=== PATIENT | male | born 1955 | race Caucasian/White ===

== ENCOUNTER → 2018-06-05 | Outpatient (CLI) | payer BC ==
--- NOTE | 2018-06-05 15:16 | US ---
EXAMINATION TYPE: US kidneys/renal and bladder DATE OF EXAM: 06/05/2018 COMPARISON: NONE CLINICAL HISTORY: N18.3 Chronic kidney disease stage 3. CKD stage III EXAM MEASUREMENTS: Right Kidney: 9.7 x 3.8 x 4.8 cm Left Kidney: 10.8 x 5.3 x 4.5 cm Right Kidney: cystic area upper pole = 3.9 x 3.7 x 3.2cm Left Kidney: no evidence of hydronephrosis Bladder: appears wnl as visualized Bilateral Jets seen: yes There is no evidence for hydronephrosis at this point in time. No nephrolithiasis is seen. Upper hazel e focus right kidney is anechoic and shows increased through transmission, imperceptible wall compati ble with simple cyst. Cortical medullary differentiation is maintained. The urinary bladder is anecho ic. Bilateral ureteral jets are seen. IMPRESSION: Simple cyst upper pole right kidney.
== END | disposition home or self-care (01) ==
LOC: RADUSWWP 12:09
PROVIDERS: ATTEND Urology
DX: N28.1 Cyst of kidney, acquired (principal); N18.3 Chronic kidney disease, stage 3 (moderate)
CPT/HCPCS: 76770

== ENCOUNTER → 2018-06-13 | Outpatient (CLI) | payer BC ==
[2018-06-13 18:06] LABS: Total Volume 24 Hour,Urine 3350 mL
== END | disposition home or self-care (01) ==
LOC: LABWHC1 09:08
PROVIDERS: ATTEND Urology
DX: N18.3 Chronic kidney disease, stage 3 (moderate) (principal)
CPT/HCPCS: 36415; 81050; 82575; 84156

== ENCOUNTER → 2018-07-15 | Outpatient (CLI) | payer BC ==
[2018-07-15 09:37] LABS: HCT 44.8 % (39.0-53.0); HGB 14.3 gm/dL (13.0-17.5); MCH 30.7 pg (25.0-35.0); MCHC 31.8 g/dL (31.0-37.0); MCV 96.3 fL (80.0-100.0); Mean Platelet Volume 7.1; Platelet Count 261 k/uL (150-450); RBC 4.65 m/uL (4.30-5.90); RDW 13.4 % (11.5-15.5); WBC 7.3 k/uL (3.8-10.6)
[2018-07-15 09:55] LABS: Appearance,Urine Clear (Clear); Bilirubin,Urine Negative (Negative); Blood,Urine Negative (Negative); Color,Urine Yellow; Glucose,Urine (UA) Negative (Negative); Ketones,Urine Negative (Negative); Leukocyte Esterase,Urine Negative (Negative); Nitrite,Urine Negative (Negative); PH, Urine 5.5 (5.0-8.0); Protein,Urine Negative (Negative); Specific Gravity,Urine 1.019 (1.001-1.035); Urobilinogen,Urine <2.0 mg/dL (<2.0)
[2018-07-15 17:24] LABS: Albumin 4.3 g/dL (3.80-4.90); Albumin/Globulin Ratio 1.65 (1.20-2.10); Anion Gap 3.9 mmol/L (4.00-12.00); Calcium 9.2 mg/dL (8.7-10.3); Carbon Dioxide 27.1 mmol/L (21.6-31.8); Globulin 2.6 g/dL (2.1-3.7); Phosphorus 3.8 mg/dL (2.4-5.1); Potassium 4.8 mmol/L (3.5-5.5); Total Bilirubin 0.4 mg/dL (0.3-1.2); Total Protein 6.9 g/dL (6.2-8.2)
== END ==
LOC: LABWHC1 08:28
PROVIDERS: ATTEND Internal Medicine
DX: D64.9 Anemia, unspecified (principal); E83.39 Other disorders of phosphorus metabolism; N39.0 Urinary tract infection, site not specified
CPT/HCPCS: 36415; 80053; 81003; 84100; 85027

== ENCOUNTER 2018-08-09 15:25 | Observation (INO) | payer BC ==
[2018-08-09] MEDS ORDERED: NITROGLYCERIN SL TABS 0.4 MG TAB SUBLINGUAL STA (15:48)
[2018-08-09] MEDS ORDERED: ASPIRIN 81 MG PO STA (15:48)
--- NOTE | 2018-08-09 15:50 | ED ---
General Adult HPI - General Chief complaint: Chest Pain Stated complaint: Chest pain Time Seen by Provider: 08/09/18 15:40 Source: patient, family, RN notes reviewed Mode of arrival: ambulatory Limitations: no limitations - History of Present Illness Initial comments: Patient is a pleasant 62-year-old male presenting to the emergency Department with complaints of chest discomfort. Symptoms have been occurring for approximately 10 days. Patient has tightness in his chest that is rated 4/10. Discomfort is lower sternal region. No radiation. No dyspnea. No nausea or diaphoresis. Symptoms are not positional. Symptoms do worsen somewhat with taking breaths, especially deep breaths. Symptoms are also somewhat worsened nighttime. Patient has been taking Pepcid without improvement of symptoms. No history of similar symptoms previously. - Related Data Home Medications Medication Instructions Recorded Confirmed Dorzolamide HCl/Timolol Maleat 1 drop BOTH EYES BID 01/25/16 08/09/18 [Cosopt Eye Drops] Latanoprost [Xalatan 0.005%] 1 drop BOTH EYES HS 01/25/16 08/09/18 Cyanocobalamin [Vitamin B-12] 500 mcg PO DAILY 02/18/18 08/09/18 Acetaminophen [Tylenol Arthritis] 650 mg PO DAILY 08/09/18 08/09/18 Allergies Allergy/AdvReac Type Severity Reaction Status Date / Time No Known Allergies Allergy Verified 08/09/18 16:31 Review of Systems ROS Statement: Those systems with pertinent positive or pertinent negative responses have been documented in the HPI. ROS Other: All systems not noted in ROS Statement are negative. Constitutional: Denies: fever Eyes: Denies: eye pain ENT: Denies: ear pain Respiratory: Denies: cough, dyspnea Cardiovascular: Reports: as per HPI, chest pain Endocrine: Denies: fatigue Gastrointestinal: Denies: abdominal pain, nausea, vomiting Genitourinary: Denies: dysuria Musculoskeletal: Denies: back pain Skin: Denies: rash Neurological: Denies: weakness Past Medical History Past Medical History: Eye Disorder, GERD/Reflux, Hyperlipidemia, Musculoskeletal Disorder, Osteoarthritis (OA), Vascular Disorder Additional Past Medical History / Comment(s): GLAUCOMA, , chronic back pain, detached retina zachery eyes,superficial thrombosis rt leg History of Any Multi-Drug Resistant Organisms: None Reported Past Surgical History: Adenoidectomy, Orthopedic Surgery, Tonsillectomy Additional Past Surgical History / Comment(s): Pain clinic proc to back:04-12-16, Zachery Cataract, lens implants, Rt knee x 2, Lt shoulder rotator cuff,zachery detached retina repair, Past Anesthesia/Blood Transfusion Reactions: No Reported Reaction Past Psychological History: No Psychological Hx Reported Smoking Status: Former smoker Past Alcohol Use History: Occasional Past Drug Use History: None Reported - Past Family History Mother Family Medical History: Cancer, Congestive Heart Failure (CHF), COPD Additional Family Medical History / Comment(s): bowel cancer Father Family Medical History: Congestive Heart Failure (CHF), COPD Additional Family Medical History / Comment(s): emphysema Sister(s) Family Medical History: No Reported History (Patient has one sister no major medical problems) Additional Family Medical History / Comment(s): glaucoma General Exam Limitations: no limitations General appearance: alert, in no apparent distress Head exam: Present: atraumatic Eye exam: Present: normal appearance, PERRL ENT exam: Present: normal oropharynx Neck exam: Present: normal inspection Respiratory exam: Present: normal lung sounds bilaterally. Absent: chest wall tenderness Cardiovascular Exam: Present: regular rate, normal rhythm, normal heart sounds Expanded Peripheral pulses: 2+: Radial (R), Radial (L), Posterior Tibialis (R), Posterior Tibialis (L), Dorsalis Pedis (R), Dorsalis Pedis (L) GI/Abdominal exam: Present: soft. Absent: distended, tenderness, guarding Extremities exam: Present: normal inspection. Absent: pedal edema, calf tenderness Neurological exam: Present: alert Psychiatric exam: Present: normal affect, normal mood Skin exam: Present: normal color Course Vital Signs 08/09/18 08/09/18 08/09/18 15:27 15:55 16:00 Temperature 97.8 F Pulse Rate 71 67 Respiratory 20 20 Rate Blood Pressure 165/89 134/84 O2 Sat by Pulse 99 97 98 Oximetry 08/09/18 08/09/18 16:30 17:30 Temperature Pulse Rate 65 56 L Respiratory 18 16 Rate Blood Pressure 112/73 119/75 O2 Sat by Pulse 96 99 Oximetry EKG Findings - EKG Comments: EKG Findings:: Normal sinus rhythm 64. OH 156. QRS 92. QT 390. QTC 402. Normal axis. Normal QRS. No acute ST change. Medical Decision Making - Medical Decision Making Patient reevaluated and resting comfortably in bed. Patient and family updated on results and plan. Case was crusted detail with Dr. Sierra, who will admit covering for Dr. addison - Lab Data Result diagrams: 08/09/18 16:00 08/09/18 16:00 Lab Results 08/09/18 08/09/18 08/09/18 Range/Units 16:00 16:00 16:00 WBC 9.1 (3.8-10.6) k/uL RBC 4.55 (4.30-5.90) m/uL Hgb 14.0 (13.0-17.5) gm/dL Hct 42.5 (39.0-53.0) % MCV 93.4 (80.0-100.0) fL MCH 30.7 (25.0-35.0) pg MCHC 32.9 (31.0-37.0) g/dL RDW 13.4 (11.5-15.5) % Plt Count 271 (150-450) k/uL Neutrophils % 64 % Lymphocytes % 23 % Monocytes % 8 % Eosinophils % 2 % Basophils % 1 % Neutrophils # 5.8 (1.3-7.7) k/uL Lymphocytes # 2.1 (1.0-4.8) k/uL Monocytes # 0.8 (0-1.0) k/uL Eosinophils # 0.2 (0-0.7) k/uL Basophils # 0.0 (0-0.2) k/uL PT (9.0-12.0) sec INR (<1.2) APTT (22.0-30.0) sec D-Dimer (<0.60) mg/L FEU Sodium 141 (137-145) mmol/L Potassium 4.7 (3.5-5.1) mmol/L Chloride 109 H (98-107) mmol/L Carbon Dioxide 24 (22-30) mmol/L Anion Gap 8 mmol/L BUN 26 H (9-20) mg/dL Creatinine 1.42 H (0.66-1.25) mg/dL Est GFR (CKD-EPI)AfAm 61 (>60 ml/min/1.73 sqM) Est GFR (CKD-EPI)NonAf 53 (>60 ml/min/1.73 sqM) Glucose 90 (74-99) mg/dL Calcium 9.5 (8.4-10.2) mg/dL Magnesium 2.1 (1.6-2.3) mg/dL Total Bilirubin 0.4 (0.2-1.3) mg/dL AST 34 (17-59) U/L ALT 26 (21-72) U/L Alkaline Phosphatase 55 (38-126) U/L Total Creatine Kinase 240 H (55-170) U/L CK-MB (CK-2) 2.9 H (0.0-2.4) ng/mL CK-MB (CK-2) Rel Index 1.2 Troponin I <0.012 (0.000-0.034) ng/mL Total Protein 7.9 (6.3-8.2) g/dL Albumin 3.8 (3.5-5.0) g/dL 08/09/18 Range/Units 16:00 WBC (3.8-10.6) k/uL RBC (4.30-5.90) m/uL Hgb (13.0-17.5) gm/dL Hct (39.0-53.0) % MCV (80.0-100.0) fL MCH (25.0-35.0) pg MCHC (31.0-37.0) g/dL RDW (11.5-15.5) % Plt Count (150-450) k/uL Neutrophils % % Lymphocytes % % Monocytes % % Eosinophils % % Basophils % % Neutrophils # (1.3-7.7) k/uL Lymphocytes # (1.0-4.8) k/uL Monocytes # (0-1.0) k/uL Eosinophils # (0-0.7) k/uL Basophils # (0-0.2) k/uL PT 10.0 (9.0-12.0) sec INR 0.9 (<1.2) APTT 24.2 (22.0-30.0) sec D-Dimer 0.39 (<0.60) mg/L FEU Sodium (137-145) mmol/L Potassium (3.5-5.1) mmol/L Chloride (98-107) mmol/L Carbon Dioxide (22-30) mmol/L Anion Gap mmol/L BUN (9-20) mg/dL Creatinine (0.66-1.25) mg/dL Est GFR (CKD-EPI)AfAm (>60 ml/min/1.73 sqM) Est GFR (CKD-EPI)NonAf (>60 ml/min/1.73 sqM) Glucose (74-99) mg/dL Calcium (8.4-10.2) mg/dL Magnesium (1.6-2.3) mg/dL Total Bilirubin (0.2-1.3) mg/dL AST (17-59) U/L ALT (21-72) U/L Alkaline Phosphatase (38-126) U/L Total Creatine Kinase (55-170) U/L CK-MB (CK-2) (0.0-2.4) ng/mL CK-MB (CK-2) Rel Index Troponin I (0.000-0.034) ng/mL Total Protein (6.3-8.2) g/dL Albumin (3.5-5.0) g/dL - Radiology Data Radiology results: image reviewed (Chest x-ray shows no acute process) Disposition Clinical Impression: Chest pain Disposition: ADMITTED IP TO THIS HOSP Is patient prescribed a controlled substance at d/c from ED?: No Referrals: Choco Addison DO [Primary Care Provider] - 1-2 days Time of Disposition: 18:27 Decision Time: 18:27
[2018-08-09 16:20] LABS: Basophils % (A) 1 %; Eosinophils # (A) 0.2 k/uL (0-0.7); Eosinophils % (A) 2 %; HCT 42.5 % (39.0-53.0); Lymphocytes # (A) 2.1 k/uL (1.0-4.8); Lymphocytes % (A) 23 %; MCH 30.7 pg (25.0-35.0); MCHC 32.9 g/dL (31.0-37.0); MCV 93.4 fL (80.0-100.0); Monocytes # (A) 0.8 k/uL (0-1.0); Monocytes % (A) 8 %; Neutrophils # (A) 5.8 k/uL (1.3-7.7); Neutrophils % (A) 64 %; Platelet Count 271 k/uL (150-450); RBC 4.55 m/uL (4.30-5.90); RDW 13.4 % (11.5-15.5); WBC 9.1 k/uL (3.8-10.6)
[2018-08-09 16:31] LABS: Albumin 3.8 g/dL (3.5-5.0); Calcium 9.5 mg/dL (8.4-10.2); Magnesium 2.1 mg/dL (1.6-2.3); Potassium 4.7 mmol/L (3.5-5.1); Total Bilirubin 0.4 mg/dL (0.2-1.3); Total Protein 7.9 g/dL (6.3-8.2)
[2018-08-09 16:38] LABS: D-Dimer 0.39 mg/L FEU (<0.60); INR 0.9 (<1.2); Partial Thromboplastin Time 24.2 sec (22.0-30.0)
[2018-08-09 16:41] LABS: Creatine Kinase 240 U/L (55-170)
[2018-08-09 16:54] LABS: Creatine Kinase MB 2.9 ng/mL (0.0-2.4); Troponin I <0.012 ng/mL (0.000-0.034)
--- NOTE | 2018-08-09 17:20 | XR ---
EXAMINATION TYPE: XR chest 2V DATE OF EXAM: 08/09/2018 COMPARISON: 01/25/2016 HISTORY: Chest pain TECHNIQUE: Frontal and lateral views of the chest are obtained. FINDINGS: Heart and mediastinum are normal. Lungs are clear of consolidation. There is no pleural ef fusion. Bony thorax is intact. There are chest leads. IMPRESSION: No active cardiopulmonary disease. Normal heart. No change.
[2018-08-09] MEDS ORDERED: NITROGLYCERIN SL TABS 0.4 MG TAB SUBLINGUAL PRN (18:28)
[2018-08-09] MEDS ORDERED: ARTIFICIAL TEARS-HYPROMELLOSE DROPS 15 ML BTL BOTH EYES PRN (20:51)
[2018-08-09] MEDS ORDERED: LATANOPROST 0.005% OPHTH DROPS 2.5 ML BTL BOTH EYES SCH (21:00)
[2018-08-09 22:00] LABS: Creatine Kinase 186 U/L (55-170)
[2018-08-09] MEDS: DORZOLAMIDE-TIMOLOL 2.23%/0.68 10ML BTL BOTH EYES SCH (22:05)
[2018-08-09 22:13] LABS: Creatine Kinase MB 1.9 ng/mL (0.0-2.4); Troponin I <0.012 ng/mL (0.000-0.034)
[2018-08-09] MEDS: NITROGLYCERIN OINT 1 INCH/GM PACKET TOPICAL SCH (23:32)
[2018-08-10 04:29] LABS: Cholesterol 251 mg/dL (<200); HDL Cholesterol 49 mg/dL (40-60); LDL Cholesterol,Calculated 136 mg/dL (0-99); Triglycerides 328 mg/dL (<150)
[2018-08-10 04:33] LABS: Creatine Kinase 167 U/L (55-170)
[2018-08-10 04:45] LABS: Creatine Kinase MB 1.7 ng/mL (0.0-2.4); Troponin I <0.012 ng/mL (0.000-0.034)
[2018-08-10] MEDS: NITROGLYCERIN OINT 1 INCH/GM PACKET TOPICAL SCH ×2 (06:46→12:17)
[2018-08-10] MEDS: DORZOLAMIDE-TIMOLOL 2.23%/0.68 10ML BTL BOTH EYES SCH (08:17)
[2018-08-10] MEDS ORDERED: ASPIRIN 325 MG TAB PO SCH (09:00)
[2018-08-10 11:44] VITALS: BP 129/71; PULSE 51; RESP 14; TEMP 98.3
--- NOTE | 2018-08-10 11:45 | P.CRDCN ---
History of Present Illness History of present illness: This is Dr. Hernandez dictating a consult on this patient The patient was interviewed and examined by me IMPRESSION / ASSESSMENT: 62 male patient presenting with recurrent tightness in the chest with 3 normal cardiac enzymes Elevated triglycerides of 328 Elevated total. 251 Elevated LDL of 136 HDL 49 BUN 26 creatinine 1.4 to, chronic kidney disease stage III PLAN: Patient may go home from a cardiac standpoint and I will see him for outpatient workup. He stopped smoking many years back Dietary modification low-salt diet regular exercise HPI 62-year-old male patient with chest discomfort for 10 days. Recurrent tightness , 4-10 lower mid chest without any radiation no shortness of breath no nausea diaphoresis Somewhat pleuritic in nature History of dyslipidemia Twelve-lead ECG is normal ROS: No fever chills or rigors, no cough, phlegm or expectoration, no nausea, vomiting or diarrhea, no hematuria, dysuria, no musculoskeletal complaints, no strokes or seizures, no skin lesions. EXAMINATION Normal heart sounds, normal blood pressure Breath sounds are clear no rhonchi no crackles Extremity is warm no edema Abdomen soft nontender Normal heart sounds normal S1 normal S2 no murmurs or gallop or rub REVIEW OF LABS, ECG Twelve-lead ECG is completely normal Radiology read the chest x-ray is within normal limits Past Medical History Past Medical History: Eye Disorder, GERD/Reflux, Hyperlipidemia, Musculoskeletal Disorder, Osteoarthritis (OA), Vascular Disorder Additional Past Medical History / Comment(s): GLAUCOMA, chronic back pain, detached retina zahcery eyes,superficial thrombosis rt leg History of Any Multi-Drug Resistant Organisms: None Reported Past Surgical History: Adenoidectomy, Orthopedic Surgery, Tonsillectomy Additional Past Surgical History / Comment(s): Pain clinic proc to back:04-12-16, Zachery Cataract, lens implants, Rt knee x 2( first sx on rt meniscus repair and 2nd sx rt acl reconstruction),rt thumg cyst removed Lt shoulder rotator cuff, zachery detached retina repair, 02-18-18 sx for displaced intraocular lens rt eye. Past Anesthesia/Blood Transfusion Reactions: No Reported Reaction Smoking Status: Former smoker - Past Family History Mother Family Medical History: Cancer, Congestive Heart Failure (CHF), COPD Additional Family Medical History / Comment(s): bowel cancer Father Family Medical History: Congestive Heart Failure (CHF), COPD Additional Family Medical History / Comment(s): emphysema Sister(s) Family Medical History: No Reported History Additional Family Medical History / Comment(s): glaucoma Medications and Allergies Home Medications Medication Instructions Recorded Confirmed Type Dorzolamide HCl/Timolol Maleat 1 drop BOTH EYES BID 01/25/16 08/09/18 History [Cosopt Eye Drops] Latanoprost [Xalatan 0.005%] 1 drop BOTH EYES HS 01/25/16 08/09/18 History Cyanocobalamin [Vitamin B-12] 500 mcg PO DAILY 02/18/18 08/09/18 History Acetaminophen [Tylenol Arthritis] 650 mg PO DAILY 08/09/18 08/09/18 History Artificial Tears-Hypromellose 1 drops BOTH EYES TID PRN 08/09/18 08/09/18 History [Artificial Tear Drops] Allergies Allergy/AdvReac Type Severity Reaction Status Date / Time No Known Allergies Allergy Verified 08/09/18 20:23 Physical Exam Vitals: Vital Signs Temp Pulse Pulse Resp BP BP Pulse Ox 08/10/18 03:49 16 08/10/18 03:48 98.4 F 63 16 118/68 96 08/10/18 00:40 98.6 F 59 L 16 129/79 97 08/09/18 23:24 18 08/09/18 20:00 18 08/09/18 19:31 98.1 F 68 18 160/91 99 08/09/18 19:00 57 L 15 137/91 99 08/09/18 18:30 58 L 14 118/83 99 08/09/18 18:00 58 L 16 115/74 99 08/09/18 17:30 56 L 16 119/75 99 08/09/18 16:30 65 18 112/73 96 08/09/18 16:00 67 20 134/84 98 08/09/18 15:55 97 08/09/18 15:27 97.8 F 71 20 165/89 99 Intake and Output 08/09/18 08/10/18 08/10/18 22:59 06:59 14:59 Other: Voiding Method Toilet Toilet # Voids 2 Weight 98.5 kg Results 08/09/18 16:00 08/09/18 16:00 Cardiac Enzymes 08/09/18 08/09/18 08/09/18 Range/Units 16:00 16:00 21:33 AST 34 (17-59) U/L CK-MB (CK-2) 2.9 H 1.9 (0.0-2.4) ng/mL Troponin I <0.012 <0.012 (0.000-0.034) ng/mL 08/10/18 Range/Units 03:18 AST (17-59) U/L CK-MB (CK-2) 1.7 (0.0-2.4) ng/mL Troponin I <0.012 (0.000-0.034) ng/mL Coagulation 08/09/18 Range/Units 16:00 PT 10.0 (9.0-12.0) sec APTT 24.2 (22.0-30.0) sec Lipids 08/10/18 Range/Units 03:18 Triglycerides 328 H (<150) mg/dL Cholesterol 251 H (<200) mg/dL HDL Cholesterol 49 (40-60) mg/dL CBC 08/09/18 Range/Units 16:00 WBC 9.1 (3.8-10.6) k/uL RBC 4.55 (4.30-5.90) m/uL Hgb 14.0 (13.0-17.5) gm/dL Hct 42.5 (39.0-53.0) % Plt Count 271 (150-450) k/uL Comprehensive Metabolic Panel 08/09/18 Range/Units 16:00 Sodium 141 (137-145) mmol/L Potassium 4.7 (3.5-5.1) mmol/L Chloride 109 H (98-107) mmol/L Carbon Dioxide 24 (22-30) mmol/L BUN 26 H (9-20) mg/dL Creatinine 1.42 H (0.66-1.25) mg/dL Glucose 90 (74-99) mg/dL Calcium 9.5 (8.4-10.2) mg/dL AST 34 (17-59) U/L ALT 26 (21-72) U/L Alkaline Phosphatase 55 (38-126) U/L Total Protein 7.9 (6.3-8.2) g/dL Albumin 3.8 (3.5-5.0) g/dL Current Medications Generic Name Dose Route Start Last Admin Trade Name Freq PRN Reason Stop Dose Admin Artificial Tears 1 drops 08/09/18 20:51 Artificial Tear Drops BOTH EYES TID PRN dry eye Aspirin 325 mg 08/10/18 09:00 Aspirin PO DAILY [facility] Dorzolamide/Timolol 1 drops 08/09/18 21:00 08/09/18 22:05 Cosopt BOTH EYES Not Given BID LALITA Latanoprost 1 drops 08/09/18 21:00 08/09/18 21:44 Xalatan 0.005% BOTH EYES 1 drops HS LALITA Administration Nitroglycerin 1 inch 08/10/18 00:00 08/10/18 06:46 Nitro-Bid Oint TOPICAL Not Given Q6HR [facility] Nitroglycerin 0.4 mg 08/09/18 18:28 Nitrostat SUBLINGUAL Q5M PRN Chest Pain Intake and Output 08/09/18 08/10/18 08/10/18 22:59 06:59 14:59 Other: Voiding Method Toilet Toilet # Voids 2 Weight 98.5 kg 08/09/18 16:00 08/09/18 16:00
--- NOTE | 2018-08-10 13:55 | P.HPIM ---
History of Present Illness H&P Date: 08/10/18 Chief Complaint: Chest pain This is a 62-year-old pleasant male who presented to the emergency department with complaints of chest discomfort. The abdominal have been occurring for approximately 10 days. The patient had chest tightness that was rate of 4 out of 10. The discomfort was in the lower sternal region with no radiation denies any difficulty breathing nausea or diaphoresis. The symptoms do worsen with taking deep breaths. The symptoms seem to be worse at night. Patient does take Pepcid however the symptoms are not resolved after he took Pepcid. Patient has history of acid reflux, hyperlipidemia, osteoarthritis, glaucoma, chronic back pain, and superficial thrombosis of the right leg. Patient is sitting comfortably in bed at this time. He has been up and around his room without any complaints. Patient has been seen by cardiology and was cleared to go home. Patient denies any chest pain at this time, difficulty breathing, diaphoresis, nausea or vomiting. Review of Systems Constitutional: Denies chills, Denies fatigue, Denies lethargy, Denies malaise, Denies weight gain, Denies weight loss Eyes: denies blurred vision, denies discharge Ears: deny: decreased hearing, ear discharge Ears, nose, mouth and throat: Denies dysphagia, Denies headache, Denies sore throat Cardiovascular: Denies chest pain, Denies dyspnea on exertion, Denies irregular heart beat, Denies palpitations, Denies rapid heart beat Respiratory: Denies cough, Denies dyspnea, Denies snoring Gastrointestinal: Denies abdominal pain, Denies change in bowel habits, Denies constipation, Denies heartburn, Denies nausea, Denies vomiting Musculoskeletal: Denies atrophy, Denies limitation of motion Integumentary: Denies rash, Denies wounds Neurological: Denies aphasia, Denies numbness, Denies tingling Psychiatric: Denies anxiety, Denies depression Endocrine: Denies excessive thirst, Denies polyuria Hematologic/Lymphatic: Denies easy bleeding, Denies easy bruising Past Medical History Past Medical History: Eye Disorder, GERD/Reflux, Hyperlipidemia, Musculoskeletal Disorder, Osteoarthritis (OA), Vascular Disorder Additional Past Medical History / Comment(s): GLAUCOMA, chronic back pain, detached retina zachery eyes,superficial thrombosis rt leg History of Any Multi-Drug Resistant Organisms: None Reported Past Surgical History: Adenoidectomy, Orthopedic Surgery, Tonsillectomy Additional Past Surgical History / Comment(s): Pain clinic proc to back:04-12-16, Zachery Cataract, lens implants, Rt knee x 2( first sx on rt meniscus repair and 2nd sx rt acl reconstruction),rt thumg cyst removed Lt shoulder rotator cuff, zachery detached retina repair, 02-18-18 sx for displaced intraocular lens rt eye. Past Anesthesia/Blood Transfusion Reactions: No Reported Reaction Smoking Status: Former smoker - Past Family History Mother Family Medical History: Cancer, Congestive Heart Failure (CHF), COPD Additional Family Medical History / Comment(s): bowel cancer Father Family Medical History: Congestive Heart Failure (CHF), COPD Additional Family Medical History / Comment(s): emphysema Sister(s) Family Medical History: No Reported History Additional Family Medical History / Comment(s): glaucoma Medications and Allergies Home Medications Medication Instructions Recorded Confirmed Type Dorzolamide HCl/Timolol Maleat 1 drop BOTH EYES BID 01/25/16 08/09/18 History [Cosopt Eye Drops] Latanoprost [Xalatan 0.005%] 1 drop BOTH EYES HS 01/25/16 08/09/18 History Cyanocobalamin [Vitamin B-12] 500 mcg PO DAILY 02/18/18 08/09/18 History Acetaminophen [Tylenol Arthritis] 650 mg PO DAILY 08/09/18 08/09/18 History Artificial Tears-Hypromellose 1 drops BOTH EYES TID PRN 08/09/18 08/09/18 History [Artificial Tear Drops] Allergies Allergy/AdvReac Type Severity Reaction Status Date / Time No Known Allergies Allergy Verified 08/09/18 20:23 Physical Exam Vitals: Vital Signs Temp Pulse Pulse Resp BP BP Pulse Ox 08/10/18 11:43 98.3 F 51 L 14 129/71 99 08/10/18 08:13 98.2 F 60 12 128/76 97 08/10/18 07:25 100 08/10/18 03:49 16 08/10/18 03:48 98.4 F 63 16 118/68 96 08/10/18 00:40 98.6 F 59 L 16 129/79 97 08/09/18 23:24 18 08/09/18 20:00 18 08/09/18 19:31 98.1 F 68 18 160/91 99 08/09/18 19:00 57 L 15 137/91 99 08/09/18 18:30 58 L 14 118/83 99 08/09/18 18:00 58 L 16 115/74 99 08/09/18 17:30 56 L 16 119/75 99 08/09/18 16:30 65 18 112/73 96 08/09/18 16:00 67 20 134/84 98 08/09/18 15:55 97 08/09/18 15:27 97.8 F 71 20 165/89 99 Intake and Output 08/09/18 08/10/18 08/10/18 22:59 06:59 14:59 Other: Voiding Method Toilet Toilet # Voids 2 1 Weight 98.5 kg - Constitutional General appearance: average body habitus, cooperative, no acute distress - EENT Eyes: anicteric sclerae, EOMI, PERRLA ENT: hearing grossly normal, NA/AT - Neck Neck: no lymphadenopathy, normal ROM, no rigidity, no stridor - Respiratory Respiratory: bilateral: CTA, negative: diminished, dullness, rales, rhonchi, wheezing, prolonged expiration, prolonged inspiration, other - Cardiovascular Rhythm: regular Heart sounds: normal: S1, S2 Abnormal Heart Sounds: no systolic murmur, no diastolic murmur, no rub, no S3 Gallop, no S4 Gallop, no click, no other - Gastrointestinal General gastrointestinal: normal bowel sounds, no organomegaly, soft, no tenderness - Integumentary Integumentary: normal turgor - Neurologic Neurologic: CNII-XII intact - Musculoskeletal Musculoskeletal: gait normal, strength equal bilaterally - Psychiatric Psychiatric: A&O x's 3, appropriate affect, intact judgment & insight Results CBC & Chem 7: 08/09/18 16:00 08/09/18 16:00 Labs: Abnormal Lab Results - Last 24 Hours (Table) 08/09/18 08/09/18 08/09/18 Range/Units 16:00 16:00 21:33 Chloride 109 H (98-107) mmol/L BUN 26 H (9-20) mg/dL Creatinine 1.42 H (0.66-1.25) mg/dL Total Creatine Kinase 240 H 186 H (55-170) U/L CK-MB (CK-2) 2.9 H (0.0-2.4) ng/mL Triglycerides (<150) mg/dL Cholesterol (<200) mg/dL LDL Cholesterol, Calc (0-99) mg/dL 08/10/18 Range/Units 03:18 Chloride (98-107) mmol/L BUN (9-20) mg/dL Creatinine (0.66-1.25) mg/dL Total Creatine Kinase (55-170) U/L CK-MB (CK-2) (0.0-2.4) ng/mL Triglycerides 328 H (<150) mg/dL Cholesterol 251 H (<200) mg/dL LDL Cholesterol, Calc 136 H (0-99) mg/dL Thrombosis Risk Factor Assmnt - Choose All That Apply Any of the Below Risk Factors Present?: Yes Each Factor Represents 1 point: Obesity (BMI >25), Varicose veins Other Risk Factors: Yes Each Risk Factor Represents 2 Points: Age 61-74 years Each Risk Factor Represents 3 Points: History of DVT/PE Thrombosis Risk Factor Assessment Total Risk Factor Score: 7 Thrombosis Risk Factor Assessment Level: High Risk Assessment and Plan Plan: 1. Chest pain, pleuritic in nature. Serial troponins negative, EKG is normal. Cardiology consult completed. 2. Hyperlipidemia. Elevated triglycerides of 328, elevated total of 251, elevated LDL of 136, HDL 49. We'll follow-up with cardiology for an outpatient workup. Continue with diet modifications of low side diet and regular exercise 3. Acid reflux. Pepcid before meals as needed. Discharge plan: Discharge home today Impression and plan of care have been directed as dictated by the signing physician. Dacia Murillo nurse practitioner acting as scribe for signing physician.
--- NOTE | 2018-08-10 13:57 | P.DS ---
Providers Date of admission: 08/09/18 18:28 Attending physician: Owen Sierra Consults: 08/09/18 18:28 Consult Physician Urgent Consulting Provider: Trip Giordano Consult Reason/Comments: cp Do you want consulting provider notified?: Yes Primary care physician: [facility] Course: This is a 62-year-old pleasant male who presented to the emergency department with complaints of chest discomfort. The abdominal have been occurring for approximately 10 days. The patient had chest tightness that was rate of 4 out of 10. The discomfort was in the lower sternal region with no radiation denies any difficulty breathing nausea or diaphoresis. The symptoms do worsen with taking deep breaths. The symptoms seem to be worse at night. Patient does take Pepcid however the symptoms are not resolved after he took Pepcid. Patient has history of acid reflux, hyperlipidemia, osteoarthritis, glaucoma, chronic back pain, and superficial thrombosis of the right leg. Patient is sitting comfortably in bed at this time. He has been up and around his room without any complaints. Patient has been seen by cardiology and was cleared to go home. Patient denies any chest pain at this time, difficulty breathing, diaphoresis, nausea or vomiting. 1. Chest pain, pleuritic in nature. 2. Hyperlipidemia. Elevated triglycerides of 328, elevated total of 251, elevated LDL of 136, HDL 49. We'll follow-up with cardiology for an outpatient workup. Continue with diet modifications of low side diet and regular exercise 3. Acid reflux. Disposition: Discharge home today with self-care Impression and plan of care have been directed as dictated by the signing physician. Dacia Murillo nurse practitioner acting as scribe for signing physician. Plan - Discharge Summary Discharge Rx Participant: Yes New Discharge Prescriptions: No Action Latanoprost [Xalatan 0.005%] 1 drop BOTH EYES HS Dorzolamide HCl/Timolol Maleat [Cosopt Eye Drops] 1 drop BOTH EYES BID Cyanocobalamin [Vitamin B-12] 500 mcg PO DAILY Acetaminophen [Tylenol Arthritis] 650 mg PO DAILY Artificial Tears-Hypromellose [Artificial Tear Drops] 1 drops BOTH EYES TID PRN PRN Reason: dry eye Discharge Medication List Dorzolamide HCl/Timolol Maleat [Cosopt Eye Drops] 1 drop BOTH EYES BID 01/25/16 [History] Latanoprost [Xalatan 0.005%] 1 drop BOTH EYES HS 01/25/16 [History] Cyanocobalamin [Vitamin B-12] 500 mcg PO DAILY 02/18/18 [History] Acetaminophen [Tylenol Arthritis] 650 mg PO DAILY 08/09/18 [History] Artificial Tears-Hypromellose [Artificial Tear Drops] 1 drops BOTH EYES TID PRN 08/09/18 [History] Follow up Appointment(s)/Referral(s): Choco Addison DO [Primary Care Provider] - 1-2 days
== END 2018-08-10 14:14 | disposition home or self-care (01) ==
LOC: EC 15:25 → 1SOBS 18:28
PROVIDERS: ADMIT Internal Medicine; ATTEND Internal Medicine
DX: R07.81 Pleurodynia (principal); K21.9 Gastro-esophageal reflux disease without esophagitis; E78.5 Hyperlipidemia, unspecified; M19.90 Unspecified osteoarthritis, unspecified site; M54.9 Dorsalgia, unspecified; N18.3 Chronic kidney disease, stage 3 (moderate); E78.1 Pure hyperglyceridemia; G89.29 Other chronic pain; H40.9 Unspecified glaucoma; Z98.42 Cataract extraction status, left eye; Z98.41 Cataract extraction status, right eye; Z96.1 Presence of intraocular lens; Z79.899 Other long term (current) drug therapy; Z82.49 Family history of ischemic heart disease and other diseases of the circulatory system; Z82.5 Family history of asthma and other chronic lower respiratory diseases; Z87.891 Personal history of nicotine dependence
CPT/HCPCS: 99285; 36415; 94760; 93005; 85379; 80061; 80053; 82550 ×2; 82553 ×2; 83735; 84484 ×2; 85025; 85610; 85730; 71046; G0378 ×2

== ENCOUNTER 2018-10-04 09:24 | Day surgery (SDC) | payer BC ==
[2018-10-02 09:44] VITALS: BMI 27.8
[~2018-10-04 09:24] MED LIST: LACTATED RINGERS 1,000 ML IV SCH
[2018-10-04 09:55] VITALS: RESP 16; TEMP 97.3
[2018-10-04] MEDS ORDERED: LIDOCAINE 1% 20 ML VIAL (10MG/ML) FOR IV START INTRADERMA ONE (10:04)
[2018-10-04] MEDS ORDERED: LIDOCAINE 1% INJ 10MG/ML (20 ML MDV) ONE ×2 (10:16)
[2018-10-04] MEDS ORDERED: PROPOFOL 10 MG/ML 20 ML VIAL IV ONE ×2 (10:16)
[2018-10-04 10:41] VITALS: BP 119/75
--- NOTE | 2018-10-04 10:41 | P.PCN ---
Date of Procedure: 10/04/18 Procedure(s) Performed: BRIEF HISTORY: Patient is a 63-year-old, pleasant, white male, scheduled for an upper endoscopy as a part of evaluation of tory of GERD. 2 weeks ago he had an episode of severe chest pain and was admitted to the hospital cardiac workup was negative. He was started on Prilosec 20 mg twice daily and symptoms and symptoms are improving. He scheduled for an upper endoscopy to evaluate for GERD.. PROCEDURE PERFORMED: Esophagogastroduodenoscopy with biopsy . PREOPERATIVE DIAGNOSIS: GERD/ATYPICAL CHEST PAIN IV sedation per anesthesia. PROCEDURE: After informed consent was obtained, the patient was brought into the endoscopy unit. IV sedation was administered by Anesthesia under continuous monitoring. Initially the Olympus GIF-140 video endoscope was inserted into the mouth. Esophagus intubated without any difficulty. It was gradually advanced into the stomach and duodenum and carefully examined. The bulb and the second part of the duodenum appeared normal. The scope at this time was withdrawn to the stomach, adequately insufflated with air, and upon careful examination, mucosa of the antrum,had gastritis and biopsies were done from this area. The body, cardia and the fundus appeared normal. The scope was then withdrawn into the esophagus. The GE junction was located at 41 cm from the incisors. there were 2 short tongues of Flores's appearing-appearing mucosa measuring about 2- 3 mm in length proximal to the GE junction which was biopsied. The rest of the esophagus appeared normal. There were no erosions or ulcerations seen and the patient tolerated the procedure well. IMPRESSION: 1. Mild antral gastritis. 2. Short segment Flores's esophagus . RECOMMENDATIONS: The findings of this examination were discussed with the patientas well as his family. He was advised to continue with Prevacid 20 mg twice daily for 6 weeks and then decrease it to once daily and follow antireflux measures. If the biopsy confirms the presence of Flores's esophagus he can have a repeat upper endoscopy in 2 years.
[2018-10-04 11:20] VITALS: PULSE 60
== END 2018-10-04 11:30 | disposition home or self-care (01) ==
LOC: ORWHC2ENDO 09:24
PROVIDERS: ATTEND Internal Medicine Gastroenterology
DX: K29.50 Unspecified chronic gastritis without bleeding (principal); K22.70 Barrett's esophagus without dysplasia; N40.0 Benign prostatic hyperplasia without lower urinary tract symptoms; M19.90 Unspecified osteoarthritis, unspecified site; Z88.8 Allergy status to other drugs, medicaments and biological substances; Z79.899 Other long term (current) drug therapy
CPT/HCPCS: 88305; 43239; J2001; J2704

== ENCOUNTER → 2019-06-18 | Outpatient (CLI) | payer BC ==
[2019-06-18 13:13] VITALS: BMI 25.3
== END | disposition home or self-care (01) ==
LOC: DBWHC3 09:39
PROVIDERS: ATTEND Nurse Practitioner Family
DX: N18.3 Chronic kidney disease, stage 3 (moderate) (principal); E79.0 Hyperuricemia without signs of inflammatory arthritis and tophaceous disease
CPT/HCPCS: 97802

== ENCOUNTER → 2021-01-26 | Outpatient (CLI) | payer MEDICARE | END | disposition home or self-care (01) | LOC: LABWHC1 08:20 | PROVIDERS: ATTEND Orthopaedic Surgery | DX: Z01.812 Encounter for preprocedural laboratory examination (principal) | CPT/HCPCS: 87070 ==

== ENCOUNTER → 2021-02-25 | Outpatient (CLI) | payer MEDICARE ==
[2021-02-25 14:18] LABS: Basophils % (A) 1 %; Eosinophils # (A) 0.1 k/uL (0-0.7); Eosinophils % (A) 2 %; HCT 42.1 % (39.0-53.0); Lymphocytes # (A) 1.5 k/uL (1.0-4.8); Lymphocytes % (A) 17 %; MCH 32.4 pg (25.0-35.0); MCHC 33.3 g/dL (31.0-37.0); MCV 97.4 fL (80.0-100.0); Mean Platelet Volume 7.4; Monocytes # (A) 0.6 k/uL (0-1.0); Monocytes % (A) 8 %; Neutrophils # (A) 5.9 k/uL (1.3-7.7); Neutrophils % (A) 70 %; Platelet Count 274 k/uL (150-450); RBC 4.32 m/uL (4.30-5.90); RDW 12.8 % (11.5-15.5); WBC 8.4 k/uL (3.8-10.6)
== END | disposition home or self-care (01) ==
LOC: LABPAT 13:23
PROVIDERS: ATTEND Orthopaedic Surgery
DX: Z01.812 Encounter for preprocedural laboratory examination (principal); M17.11 Unilateral primary osteoarthritis, right knee
CPT/HCPCS: 36415; 85025

== ENCOUNTER 2021-03-01 08:54 | Day surgery (SDC) | payer MEDICARE ==
[2021-02-25 10:55] VITALS: BMI 26.2
--- NOTE | 2021-02-28 09:09 | HP ---
HISTORY AND PHYSICAL CHIEF COMPLAINT: Right knee pain. HISTORY OF PRESENT ILLNESS: Patient is a 65-year-old retired gentleman who presents with progressive right knee pain for the past several years. It has worsened recently. He is having pain with prolonged weightbearing that significantly limits him. He has tried medications in addition to previous injections with only partial temporary relief. He had two previous surgeries including an ACL reconstruction on that knee. PAST MEDICAL HISTORY: Significant for arthritis and glaucoma. PAST SURGICAL HISTORY: Significant for bilateral eye surgery, right knee ACL reconstruction, in addition to an arthroscopy, left shoulder arthroscopy. CURRENT MEDICATIONS: Allopurinol, finasteride, in addition to Tylenol. ALLERGIES: He denies drug allergies. FAMILY HISTORY: Significant for cancer. SOCIAL HISTORY: Negative for current tobacco or alcohol use. REVIEW OF SYSTEMS: Sixteen-point review of systems otherwise reviewed and is noncontributory. PHYSICAL EXAMINATION: On examination, the patient is approximately 6 foot 1, 203 pounds of endomorphic habitus. HEENT exam is nonfocal. Neck is supple. He has painless passive motion of the right hip. Straight leg raise is negative. Active motion of the right knee -10 to 124 degrees of flexion. He has mild effusion. He is tender about the medial joint line. Collaterals are stable, Cam is negative, Anna's is equivocal. He has genu varum alignment. His distal neurovascular exam appears intact in the right lower extremity. Previous x-rays of the right knee obtained in the office show severe medial compartment narrowing with [id number] changes and subchondral sclerosis. IMPRESSION: Right knee severe medial compartment osteoarthrosis. RECOMMENDATIONS: I talked to the patient at length regarding his condition and treatment options. At this point he is quite symptomatic and limited because of pain despite previous conservative measures. After thorough discussion, he opts to proceed with surgery. We will plan to proceed with right total knee arthroplasty. Risks and benefits were discussed at length in layman's terms. We will institute DVT prophylaxis postoperatively. MMODL / IJN: [id number] /
[~2021-03-01 08:54] MED LIST changes: +ACETAMINOPHEN TAB 500 MG TAB PO PRN; +DEXAMETHASONE SOD PHOSPHATE 4 MG/ML 1 ML VIAL IV ONE; +MELOXICAM 7.5 MG TAB PO PRN; +MIDAZOLAM 2 MG/2 ML VIAL IV PRN; +ONDANSETRON 4 MG/2 ML VIAL IVP ONE; +ROPIVACAINE/EPI/CLONIDINE/KET 50 ML SYRINGE MISCELLANE PRN; +TRANEXAMIC ACID 1,000 MG in SODIUM CHLORIDE 0.9% 100 ML IVPB PRN
[2021-03-01] MEDS ORDERED: MIDAZOLAM 2 MG/2 ML VIAL IVP ONE (10:15)
[2021-03-01] MEDS ORDERED: fentaNYL (PF) 50 MCG/ML 2 ML AMP ONE (10:30)
[2021-03-01] MEDS ORDERED: HYDROmorphone (PF) 1 MG/ML ONE (10:30)
[2021-03-01] MEDS ORDERED: TRANEXAMIC ACID 1,000 MG/10 ML VIAL ONE (10:30)
[2021-03-01] MEDS ORDERED: ROCURONIUM 10 MG/ML (5 ML VIAL) IV ONE (10:30)
[2021-03-01] MEDS ORDERED: SODIUM CHLORIDE 0.9% 100 ML BAG ONE (10:30)
[2021-03-01] MEDS ORDERED: LIDOCAINE 1% INJ 10MG/ML (20 ML MDV) ONE (10:30)
[2021-03-01] MEDS ORDERED: PROPOFOL 10 MG/ML 20 ML VIAL IV ONE (10:30)
[2021-03-01] MEDS ORDERED: ROPIVACAINE 5 MG/ML 30 ML VIAL ONE (10:30)
[2021-03-01] MEDS ORDERED: SUCCINYLCHOLINE CHLORIDE 100 MG/5 ML SYR IV ONE (10:30)
--- NOTE | 2021-03-01 10:53 | P.ANPRN ---
Procedure Note - Anesthesia - Nerve Block Performed Right Adductor Canal Infusion Time Out Performed: Yes Date of Procedure: 03/01/21 Procedure Start Time: : Procedure Stop Time: Location of Patient: PreOp Indication: Acute Post-Operative Pain, Requested by Surgeon Sedation Type: Sedate with meaningful contact maintained Preparation: Sterile Prep, Sterile Dressing Position: Supine Catheter: Indwelling Needle Types: On-Q Needle Gauge: 18 Ultrasound used to visualize needle placement: Yes Ultrasound used to observe medication spread: Yes Injectate: 0.5% Ropivacaine (see comment for volume) (20 ml + decadron 4 mg) Blood Aspirated: No Pain Paresthesia on Injection Noted: No Resistance on Injection: Normal Image Stored and Saved: Yes Events: Uneventful and Well Tolerated Right iPack Single Time Out Performed: Yes Date of Procedure: 03/01/21 Procedure Start Time: Procedure Stop Time: Location of Patient: PreOp Indication: Acute Post-Operative Pain, Requested by Surgeon Sedation Type: Sedate with meaningful contact maintained Preparation: Sterile Prep, Sterile Dressing Position: Left Lateral Catheter: None Needle Types: Facet Needle Gauge: 20 Ultrasound used to visualize needle placement: Yes Ultrasound used to observe medication spread: Yes Injectate: 0.5% Ropivacaine (see comment for volume) (20 ml + decadron 4 mg) Blood Aspirated: No Pain Paresthesia on Injection Noted: No Resistance on Injection: Normal Image Stored and Saved: Yes Events: Uneventful and Well Tolerated
[2021-03-01] MEDS ORDERED: LACTATED RINGERS 1,000 ML IV ONE (12:40)
--- NOTE | 2021-03-01 12:48 | P.OP ---
Date of Procedure: 03/01/21 Preoperative Diagnosis: Right knee severe tricompartmental osteoarthrosis Postoperative Diagnosis: Same Procedure(s) Performed: Right total knee arthroplastycementedcruciate retaining Implants: Depuy Attune is 8 cemented femoral component, size 7 cemented tibial component, 10 mm articular surface, 41 mm cemented patellar component. This was a cruciate retaining implant. Anesthesia: [facility] Surgeon: David Fields Contract Officer #1: Antony Moran Estimated Blood Loss (ml): 50 Pathology: other (Bone fragments) Condition: stable Disposition: PACU Indications for Procedure: The patient is a 65-year-old gentleman who presents with progressive right knee pain secondary to osteoarthrosis despite conservative measures. A discussion of the risks and benefits of operative intervention versus continued conservative measures was made with patient. He opted to proceed. Operative risks to include infection, neurovascular injury, development of blood clots, possible fracture, possible component loosening/failure need for subsequent procedures was discussed. Informed consent was obtained. Operative Findings: As below Description of Procedure: The patient was brought to the operating room, and after induction of spinal anesthesia the right lower extremity was prepped and draped in a normal fashion. The tourniquet was inflated to 270 mmHg. A longitudinal incision extending 3 finger breaths above the superior pole of the patella extending to the medial aspect the tibial tubercle was then made. The skin and subcutaneous tissues were divided sharply. Electrocautery was used for hemostasis. A medial parapatellar arthrotomy was then performed. The medial soft tissues to include the superficial and deep portions of the medial collateral ligament as well as the medial hamstring tendons were elevated subperiosteally. The proximal medial tibia osteophytes were carefully removed. The patella was everted. The knee was flexed. A portion of the retropatellar fat pad was excised sharply. The anterior cruciate ligament was sacrificed. A starting hole was made in the distal femur 1 cm anterior to the posterior cruciate origin. An intramedullary femoral guide was gently inserted planning on 5 valgus distal cut with 9 mm distal resection. The cutting block was pinned in place. The distal cut was then made. The posterior referencing sizing guide was utilized. 3 of external rotation was built into the system and verified off the trans- epicondylar axis and the posterior condyles. I felt size 8 was most appropriate. The cutting block was pinned in place. The anterior, posterior, and chamfer cuts were then made. The bone fragments were removed. A sulcus cut was then made with the appropriate guide. The trial size 8 femoral component was then placed and was fully seated. There was good anterior to posterior and medial to lateral fit. The distal peg holes were then drilled. The trial component was then removed. Attention was then paid towards preparing the proximal tibia. An extra medullary guide was utilized in line with the tibial shaft and second metatarsal distally. A 7 posterior slope was planned. I planned on 2 mm resection from the medial compartment. The cutting block was pinned in place. The proximal tibial cut was then made. The bone was removed in one fragment. The remnants of the medial and lateral menisci were excised the capsule junction with electrocautery. The tibia sized most appropriately at size 7. The posterior osteophytes off the distal femur were carefully removed with a curved osteotome. The trial tibial and femoral components were placed along with a 10 millimeters articular surface. I was able to obtain full flexion and extension with good stability with varus and valgus stress. After several flexion and extension cycles, the tibial rotation was marked with electrocautery in line with the medial one third of the tibial tubercle. Attention was then paid towards preparing the patella. A patella reamer was utilized taking this down to 14 mm of bone stock. A good flush cut was made. The patella sized most appropriately at 41 millimeters. The peg holes were then drilled. The trial component was placed. The knee was taken through a range of motion. I had good patellofemoral tracking with no hands technique. The trial components were then removed. The tibia was prepared in the appropriate rotation with appropriate drill and keel punch. The flexion and extension gaps were checked and felt to be symmetric. The posterior soft tissues were injected with ropivacaine. The bony surfaces were prepared with pulsatile lavage and dried. The deep tibial component was then cemented in place and was fully seated. Excess cement was removed. The femoral component was cemented in place and was fully seated. Again excess cement was removed. The trial 10 millimeters surface was then inserted in the knee was put in full extension. The patella component was cemented in place. After the cement had sufficiently hardened, the knee was again taken through a range of motion. Again there was good stability in flexion and extension with varus and valgus stress. The trial articular surface was then removed. The final articular surface was placed and was impacted. Care was taken to avoid any soft tissue interposition. Pulsatile lavage was again utilized. The tourniquet was deflated with approximately 70 minutes total tourniquet time. There was minimal drainage therefore a deep drain was not placed. The medial parapatellar arthrotomy was then closed with #2 Ethibond suture. The subcutaneous tissues were reapproximated interrupted 2- 0 Vicryl sutures. The skin was reapproximated with 3-0 subarticular strata fix suture. Skin tape and adhesive was applied. A sterile dressing was applied. The patient was then awoken from sedation and transferred to recovery room in good condition. Blood loss was estimated at 50 milliliters. No complications were incurred. Sponge and needle counts were correct at the end the case. Antony LEIVA assisted during the major components this case to include exposure, bone resection, and implantation.
[2021-03-01 12:58] VITALS: TEMP 97
[2021-03-01] MEDS: HYDROmorphone 0.5 MG/0.5 ML SYRINGE IVP PRN ×4 (13:16→13:50)
--- NOTE | 2021-03-01 13:34 | XR ---
EXAMINATION TYPE: XR knee limited RT DATE OF EXAM: 03/01/2021 COMPARISON: None HISTORY: Postop alignment TECHNIQUE: 2 view right knee FINDINGS: Tibial and femoral components of place. No acute fractures are evident. Postsurgical soft t issue changes are evident. IMPRESSION: 1. No acute fracture post knee replacement
[2021-03-01] MEDS ORDERED: ROPIVACAINE 0.2%-NS ON-Q PUMP 2 MG/ML EACH MISCELLANE ONE (13:38)
[2021-03-01 15:07] VITALS: RESP 16
[2021-03-01] MEDS ORDERED: HYDROcodone/APAP 7.5-325MG 1 EACH TAB ONE (16:58)
[2021-03-01] MEDS ORDERED: HYDROcodone/APAP 7.5-325MG 1 EACH TAB PO ONE (17:00)
[2021-03-01] MEDS ORDERED: ceFAZolin 1,000 MG VIAL IVPB ONE (17:05)
[2021-03-01 17:39] VITALS: BP 141/67; PULSE 55
== END 2021-03-01 18:00 | disposition home health service (06) ==
LOC: OR 08:54
PROVIDERS: ATTEND Orthopaedic Surgery
DX: M17.11 Unilateral primary osteoarthritis, right knee (principal); M25.761 Osteophyte, right knee; H40.9 Unspecified glaucoma; Z80.9 Family history of malignant neoplasm, unspecified; Z87.891 Personal history of nicotine dependence; K21.9 Gastro-esophageal reflux disease without esophagitis; Z98.890 Other specified postprocedural states; Z79.899 Other long term (current) drug therapy
CPT/HCPCS: 97162; 64999; 64448; 76942; 88300; 73560; 27447; C1713 ×2; C1776; J2250; J1100; J0690 ×2; J2405; J2001; J3010; J1170 ×2; J2795 ×2; J0330; J2704

== ENCOUNTER → 2021-04-28 | Outpatient (CLI) | payer MEDICARE ==
--- NOTE | 2021-04-28 11:35 | XR ---
EXAMINATION TYPE: XR abdomen 1V DATE OF EXAM: 04/28/2021 9:19 AM CLINICAL HISTORY: Abdominal pain. TECHNIQUE: Two Upright KUB images of the abdomen are obtained. COMPARISON: CT abdomen and pelvis earlier today. FINDINGS: Scattered gas is seen in non-distended small bowel loops. Gas and fecal material is seen in non-distended colon. There is no visceromegaly, pneumoperitoneum, or abnormal calcification apprecia andrey. The lung bases are clear. Associated scoliosis to the spine with moderate to severe multilevel b ridging osteophytes redemonstrated. Moderate axial joint space loss in both hips redemonstrated. IMPRESSION: Overall nonobstructive bowel gas pattern redemonstrated.
== END | disposition home or self-care (01) ==
LOC: RADXRMAIN 08:57
PROVIDERS: ATTEND Family Medicine
DX: R10.9 Unspecified abdominal pain (principal)
CPT/HCPCS: 74018

== ENCOUNTER 2021-06-08 07:19 | Day surgery (SDC) | payer MEDICARE ==
[2021-06-07 15:07] VITALS: BMI 25.9
[~2021-06-08 07:19] MED LIST changes: -ACETAMINOPHEN TAB 500 MG TAB PO PRN; -DEXAMETHASONE SOD PHOSPHATE 4 MG/ML 1 ML VIAL IV ONE; +LIDOCAINE 1% (10MG/ML) FOR IV START INTRADERMA PRN; -MELOXICAM 7.5 MG TAB PO PRN; -MIDAZOLAM 2 MG/2 ML VIAL IV PRN; +MOXIFLOXACIN HCL 0.5% DROPS 3 ML BTL OP PRN; -ONDANSETRON 4 MG/2 ML VIAL IVP ONE; -ROPIVACAINE/EPI/CLONIDINE/KET 50 ML SYRINGE MISCELLANE PRN; +TETRACAINE 0.5% OPHTH (PF) DROPS 4 ML BTL OP PRN; +TIMOLOL 0.5% OPHTH DROPS 5 ML BTL OP PRN; -TRANEXAMIC ACID 1,000 MG in SODIUM CHLORIDE 0.9% 100 ML IVPB PRN
[2021-06-08 07:50] VITALS: RESP 16; TEMP 97.3
[2021-06-08] MEDS ORDERED: fentaNYL (PF) 50 MCG/ML 2 ML AMP ONE (08:10)
[2021-06-08] MEDS ORDERED: MIDAZOLAM 2 MG/2 ML VIAL ONE (08:10)
[2021-06-08] MEDS ORDERED: BALANCED SALT IRRIG SOLN COMB2 15 ML IRRIG.SOLN INTRAOCULA ONE (08:31)
[2021-06-08] MEDS ORDERED: LIDOCAINE 1% (PF) 10MG/ML VIAL SQ ONE (08:31)
--- NOTE | 2021-06-08 09:13 | P.OP ---
Date of Procedure: 06/08/21 Preoperative Diagnosis: correctopia & glare problems Postoperative Diagnosis: same Procedure(s) Performed: pupilloplasty OD Implants: none Anesthesia: MAC Surgeon: Sean Romano Pathology: none sent Condition: stable Disposition: same day Indications for Procedure: glare problems Operative Findings: no complications
[2021-06-08 09:28] VITALS: BP 122/77; PULSE 58
--- NOTE | 2021-06-09 15:31 | OP ---
OPERATIVE REPORT DATE OF SURGERY: 06/08/2021. PROCEDURE: Pupilloplasty of the right eye. PREOPERATIVE DIAGNOSIS: Corectopia and vision discomfort with glare. POSTOPERATIVE DIAGNOSIS: Corectopia and vision discomfort with glare. SURGEON: Dr. Sean Romano. ANESTHESIA: Topical. ESTIMATED BLOOD LOSS: None. SPECIMEN TAKEN: None. NARRATIVE: After obtaining the appropriate consent, the patient was brought to the operating room. There he was placed under cardiac monitoring, prepped and draped in the usual sterile manner. He was approached from his right temporal side. The defect in the iris was on the nasal side. Using a 10-0 Prolene on an STC-6 type needle, the needle was passed into the anterior chamber into the iris at about 2 o'clock through the mid iris stroma and passed from under the iris back into the anterior chamber at about the 4 o'clock position and through mid iris stroma. Through a paracentesis port which had been previously created at the 5 o'clock position, an irrigating cannula was used to dock the leading edge of the needle, and it was advanced out through the cornea in this particular position. Using a Siepser Sliding Knot technique, the iris defect was closed, creating a more miotic pupil in this area. Micro scissors were used to trim the suture as close to the knot as possible to reduce any irritation on the endothelial side of the patient's cornea. The eye was brought to normal intraocular pressure through the paracentesis and the wounds were confirmed watertight. He then received two drops of 0.5% moxifloxacin as well as two drops of 0.5% timolol. He was then lightly patched and shielded in the usual manner. There were no complications from the procedure. He tolerated the procedure well and was returned to Outpatient Recovery in good condition. MMODL / IJN: [id number] /
== END 2021-06-08 09:49 | disposition home or self-care (01) ==
LOC: OR 07:19
PROVIDERS: ATTEND Ophthalmology
DX: H21.561 Pupillary abnormality, right eye (principal); Q13.2 Other congenital malformations of iris; H35.342 Macular cyst, hole, or pseudohole, left eye; M35.01 Sjogren syndrome with keratoconjunctivitis; H40.52X3 Glaucoma secondary to other eye disorders, left eye, severe stage; H47.393 Other disorders of optic disc, bilateral; H18.519 Endothelial corneal dystrophy, unspecified eye; H40.5 Glaucoma secondary to other eye disorders; H00.026 Hordeolum internum left eye, unspecified eyelid; H00.023 Hordeolum internum right eye, unspecified eyelid; H43.393 Other vitreous opacities, bilateral; H52.13 Myopia, bilateral; H21.233 Degeneration of iris (pigmentary), bilateral; H52.4 Presbyopia; Z96.1 Presence of intraocular lens; Z96.651 Presence of right artificial knee joint; Z98.890 Other specified postprocedural states; Z79.899 Other long term (current) drug therapy; E78.5 Hyperlipidemia, unspecified; K21.9 Gastro-esophageal reflux disease without esophagitis
CPT/HCPCS: 66682; J2250; J3010; J2001

== ENCOUNTER 2021-12-20 09:38 | Day surgery (SDC) | payer MEDICARE ==
[2021-12-19 11:16] VITALS: BMI 26.4
[~2021-12-20 09:38] MED LIST changes: -LIDOCAINE 1% (10MG/ML) FOR IV START INTRADERMA PRN; -MOXIFLOXACIN HCL 0.5% DROPS 3 ML BTL OP PRN; -TETRACAINE 0.5% OPHTH (PF) DROPS 4 ML BTL OP PRN; -TIMOLOL 0.5% OPHTH DROPS 5 ML BTL OP PRN
[2021-12-20 10:03] VITALS: RESP 16; TEMP 97.2
[2021-12-20] MEDS ORDERED: PROPOFOL 10 MG/ML 20 ML VIAL IV ONE (11:27)
--- NOTE | 2021-12-20 11:40 | P.PCN ---
Date of Procedure: 12/20/21 Procedure(s) Performed: BRIEF HISTORY: Patient is a 66-year-old pleasant male scheduled for an elective colonoscopy as a part of screening for colorectal neoplasia. PROCEDURE PERFORMED: Colonoscopy. PREOPERATIVE DIAGNOSIS: Screening for colon cancer. IV sedation per Anesthesia. PROCEDURE: After informed consent was obtained, the patient, was brought into the endoscopy unit. IV sedation was administered by Anesthesia under continuous monitoring. Digital rectal examination was normal. Initially the Olympus CF-160 flexible video colonoscope was then inserted in the rectum, gradually advanced into the cecum without any difficulty. Careful examination was performed as the scope was gradually being withdrawn. Ileocecal valve and the appendiceal orifice were visualized and appeared normal. Prep was excellent. Mucosa of the cecum, ascending colon, transverse colon, descending colon, sigmoid colon, and rectum appeared normal. Retroflexion was performed in the rectum and no lesions were seen. The patient tolerated the procedure well. IMPRESSION: Normal-appearing colon from rectum to cecum with no evidence of colorectal neoplasia. RECOMMENDATIONS: Findings of this examination were discussed with the patient less his family.. He was advised to have a repeat screening colonoscopy in 10 years.
[2021-12-20 12:17] VITALS: BP 124/78; PULSE 65
== END 2021-12-20 12:20 | disposition home or self-care (01) ==
LOC: ORWHC2ENDO 09:38
PROVIDERS: ATTEND Internal Medicine Gastroenterology
DX: Z12.11 Encounter for screening for malignant neoplasm of colon (principal)
CPT/HCPCS: G0121; J2704

== ENCOUNTER → 2023-07-10 | Outpatient (CLI) | payer MEDICARE ==
--- NOTE | 2023-07-10 13:10 | XR ---
EXAMINATION TYPE: XR chest 2V DATE OF EXAM: 07/10/2023 COMPARISON: 08/01/2018 HISTORY: Shortness of breath TECHNIQUE: Frontal and lateral views of the chest are obtained. FINDINGS: Scattered senescent parenchymal changes noted. Hyperinflation compatible with COPD. No evidence for infiltrate. No evidence for atelectasis. Heart size is stable. Mediastinal structures are stable and grossly unremarkable. No evidence for hilar prominence. Degenerative changes dorsal spine. IMPRESSION: 1. No evidence for acute pulmonary disease.
== END | disposition home or self-care (01) ==
LOC: RADXRMAIN 11:25
PROVIDERS: ATTEND Family Medicine
DX: J40 Bronchitis, not specified as acute or chronic (principal); R05.9 Cough, unspecified
CPT/HCPCS: 71046

== ENCOUNTER → 2023-12-14 | Outpatient (CLI) | payer MEDICARE ==
[2023-12-14 10:58] LABS: African American GFR (CKD) 69 (>60 ml/min/1.73 sqM); Blood Urea Nitrogen 16 mg/dL (9-20); Non-African American GFR(CKD) 60 (>60 ml/min/1.73 sqM)
--- NOTE | 2023-12-15 21:27 | CT ---
EXAMINATION TYPE: CT brain w con DATE OF EXAM: 12/14/2023 COMPARISON: 04/12/2011 MRI INDICATION: headache/ brain zaps x2 months DLP: 995.50 mGycm, Automated exposure control for dose reduction was used. CONTRAST: [address] of the brain is performed utilizing 3 mm thick sections through the posterior fossa and 3 mm thick sections through the remaining calvarium. Study is performed within 24 hours of arrival to the hosp [facility]. No abnormal hyperdensity is present to suggest an acute intracranial hemorrhage. No mass lesion is evident. No acute infarcts are evident. Ventricles and sulci are appropriate for the patient age. No suspicious enhancement is evident. Retention cyst within right maxillary sinus. There is an air-fluid level and thick mucosal thickening to the left maxillary sinus. Remaining paranasal sinuses and mastoid air cells are clear. IMPRESSION: 1. No acute intracranial process. Follow-up MRI can be performed as clinically indicated. 2. Clinical correlation for left acute maxillary sinusitis is recommended
== END | disposition home or self-care (01) ==
LOC: RADCTMAIN 10:16
PROVIDERS: ATTEND Family Medicine
DX: G93.89 Other specified disorders of brain (principal); R51.9 Headache, unspecified
CPT/HCPCS: 82565; 84520; 70460; 36415; Q9967

== ENCOUNTER 2024-01-22 08:13 | Emergency (ER) | payer MEDICARE ==
[2024-01-22 08:19] VITALS: RESP 18
--- NOTE | 2024-01-22 08:50 | ED ---
General Adult HPI - General Chief complaint: Urogenital Stated complaint: fall-hip pain Time Seen by Provider: 01/22/24 08:22 Source: patient, RN notes reviewed Mode of arrival: wheelchair Limitations: no limitations - History of Present Illness Initial comments: 68-year-old male presents emergency department chief complaint of scrotal injury. Patient states that this happened on Sunday which have a board up to hold back their dog. He states he did not see a tripped and fell onto it. States he woke up the next day with soreness and has had increasing pain, swelling. States even when he tries to have a bowel movement he has scrotal pain. Denies any rectal pain denies any rectal bleeding no dysuria no hematuria. Patient states there is some notable swelling or bruising. Patient also adds that he had a cough for 3 weeks he states he is having wheezing, shortness of breath he was seen in urgent care was given Tessalon Perles and Flonase. He states he had allergic reaction to these. He continues to have a cough which is productive with green sputum. - Related Data Home Medications Medication Instructions Recorded Confirmed Dorzolamide HCl/Timolol Maleat 1 drop BOTH EYES BID 01/25/16 12/19/21 [Cosopt Eye Drops] Latanoprost [Xalatan 0.005%] 1 drop BOTH EYES HS 01/25/16 12/19/21 Cyanocobalamin [Vitamin B-12] 1,000 mcg PO DAILY 02/18/18 12/19/21 Acetaminophen [Tylenol Arthritis] 650 mg PO DAILY 08/09/18 12/19/21 Cholecalciferol [Vitamin D3] 50 mcg PO DAILY 10/02/18 12/19/21 Finasteride [Proscar] 5 mg PO DAILY 10/02/18 12/19/21 Omeprazole 20 mg PO Q48H 05/02/21 12/19/21 allopurinoL [Zyloprim] 100 mg PO DAILY 12/19/21 12/19/21 Previous Rx's Medication Instructions Recorded Albuterol Inhaler [Ventolin Hfa 1 - 2 puff INHALATION Q6H PRN #1 01/22/24 Inhaler] each Amoxic-Pot Clav 875-125Mg 1 tab PO Q12HR #20 tab 01/22/24 [Augmentin 875-125] predniSONE 50 mg PO DAILY #5 tab 01/22/24 Allergies Allergy/AdvReac Type Severity Reaction Status Date / Time No Known Allergies Allergy Verified 12/20/21 09:59 Review of Systems ROS Statement: Those systems with pertinent positive or pertinent negative responses have been documented in the HPI. ROS Other: All systems not noted in ROS Statement are negative. Past Medical History Past Medical History: Eye Disorder, GERD/Reflux, Hearing Disorder / Deafness, Hyperlipidemia, Musculoskeletal Disorder, Osteoarthritis (OA), Prostate Disorder, Vascular Disorder Additional Past Medical History / Comment(s): Glaucoma bilat eyes, sl hearing loss, chronic back pain, hx detached retina zachery eyes, superficial thrombosis rt leg, told poss decreased kidney function History of Any Multi-Drug Resistant Organisms: None Reported Past Surgical History: Adenoidectomy, Joint Replacement, Orthopedic Surgery, Tonsillectomy Additional Past Surgical History / Comment(s): Pain clinic proc to back, Zachery Cataract w/ lens implants, Rt knee x 2(first sx on rt meniscus repair, 2nd sx rt acl reconstruction),rt thumb cyst removed,Lt shoulder rotator cuff, detached retina repair zachery. and multiple eye surg. on the right, rt knee replacement Past Anesthesia/Blood Transfusion Reactions: Motion Sickness Past Psychological History: No Psychological Hx Reported Smoking Status: Former smoker Past Alcohol Use History: Occasional Past Drug Use History: None Reported - Past Family History Mother Family Medical History: Cancer, Congestive Heart Failure (CHF), COPD Additional Family Medical History / Comment(s): colon/bowel cancer Father Family Medical History: Congestive Heart Failure (CHF), COPD Additional Family Medical History / Comment(s): emphysema Sister(s) Family Medical History: No Reported History Additional Family Medical History / Comment(s): glaucoma General Exam Limitations: no limitations General appearance: alert, in no apparent distress Head exam: Present: atraumatic, normocephalic, normal inspection Neck exam: Present: normal inspection, full ROM. Absent: tenderness, meningismus, lymphadenopathy Respiratory exam: Present: normal lung sounds bilaterally. Absent: respiratory distress, wheezes, rales, rhonchi, stridor Cardiovascular Exam: Present: regular rate, normal rhythm, normal heart sounds. Absent: systolic murmur, diastolic murmur, rubs, gallop, clicks GI/Abdominal exam: Present: soft, normal bowel sounds. Absent: distended, tenderness, guarding, rebound, rigid exam: Present: testicular tenderness, scrotal swelling (Ecchymosis, mild erythema). Absent: normal inspection, urethral discharge Course Vital Signs 01/22/24 01/22/24 01/22/24 08:14 08:35 09:33 Temperature 98.2 F Pulse Rate 106 H 88 Respiratory 18 18 Rate Blood Pressure 106/66 O2 Sat by Pulse 97 Oximetry 01/22/24 09:41 Temperature Pulse Rate 92 Respiratory Rate Blood Pressure O2 Sat by Pulse Oximetry Medical Decision Making - Medical Decision Making Was pt. sent in by a medical professional or institution (, PA, ADVERTISING REP, urgent care, hospital, or long term...) When possible be specific @ -No Did you speak to anyone other than the patient for history (EMS, parent, family, police, friend...)? What history was obtained from this source @ -No Did you review nursing and triage notes (agree or disagree)? Why? @ -I reviewed and agree with nursing and triage notes Were old charts reviewed (outside hosp., previous admission, EMS record, old EKG, old radiological studies, urgent care reports/EKG's, long term records)? Report findings @ -No old charts were reviewed Differential Diagnosis (chest pain, altered mental status, abdominal pain women, abdominal pain men, vaginal bleeding, weakness, fever, dyspnea, syncope, headache, dizziness, GI bleed, back pain, seizure, CVA, palpatations, mental health, musculoskeletal)? @ -Scrotal hematoma, hydrocele, varicocele, torsion, COVID 19, RSV, influenza, pneumonia, acute bronchitis, URI, this list is not all inclusive EKG interpreted by me (3pts min.). @ -None X-rays interpreted by me (1pt min.). @ -Chest x-ray shows no acute cardiopulmonary process CT interpreted by me (1pt min.). @ -None done U/S interpreted by me (1pt. min.). @ -[Ultrasound scrotum does not show any evidence of torsion normal blood flow, there is swelling noted on the left compared to the right testicle possible right-sided hemorrhagic cyst What testing was considered but not performed or refused? (CT, X-rays, U/S, labs)? Why? @ -None What meds were considered but not given or refused? Why? @ -None Did you discuss the management of the patient with other professionals (professionals i.e. , PA, ADVERTISING REP, lab, RT, psych nurse, social worker school, intellectual property lawyer, teacher, bank compliance officer, manager of case)? Give summary @ -No Was smoking cessation discussed for >3mins.? @ -No Was critical care preformed (if so, how long)? @ -No Were there social determinants of health that impacted care today? How? (Homelessness, low income, unemployed, alcoholism, drug addiction, transportation, low edu. Level, literacy, decrease access to med. care, senior care, rehab)? @ -No Was there de-escalation of care discussed even if they declined (Discuss DNR or withdrawal of care, Hospice)? DNR status @ -No What co-morbidities impacted this encounter? (DM, HTN, Smoking, COPD, CAD, Cancer, CVA, ARF, Chemo, Hep., AIDS, mental health diagnosis, sleep apnea, morbid obesity)? @ -None Was patient admitted / discharged? Hospital course, mention meds given and rout e, prescriptions, significant lab abnormalities, going to OR and other pertinent info. @ -Discharged patient seen for traumatic scrotal injury patient does have swelling, hematoma related there is good blood flow no other acute findings less likely to be hemorrhagic cyst on the right as he has no tenderness. Patient also had URI symptoms patient has acute tracheal Will be treated appropriately with close follow-up. Undiagnosed new problem with uncertain prognosis? @ -No Drug Therapy requiring intensive monitoring for toxicity (Heparin, Nitro, Insulin, Cardizem)? @ -No Were any procedures done? @ -No Diagnosis/symptom? @ -Scrotal hematoma, tracheobronchitis Acute, or Chronic, or Acute on Chronic? @ -Acute Uncomplicated (without systemic symptoms) or Complicated (systemic symptoms)? @ -Uncomplicated Side effects of treatment? @ -No Exacerbation, Progression, or Severe Exacerbation? @ -No Poses a threat to life or bodily function? How? (Chest pain, [place], [place], pneumonia, PE, COPD, DKA, ARF, appy, cholecystitis, CVA, Diverticulitis, Homicidal, Suicidal, threat to staff... and all critical care pts) @ -No Disposition Clinical Impression: Traumatic hematoma of scrotum, Acute tracheobronchitis Disposition: HOME SELF-CARE Condition: Stable Instructions (If sedation given, give patient instructions): Scrotal Pain (ED), Hematoma (ED) Additional Instructions: Please return to the Emergency Department if symptoms worsen or any other concerns. Prescriptions: Amoxic-Pot Clav 875-125Mg [Augmentin 875-125] 1 tab PO Q12HR #20 tab predniSONE 50 mg PO DAILY #5 tab Albuterol Inhaler [Ventolin Hfa Inhaler] 1 - 2 puff INHALATION Q6H PRN #1 each PRN Reason: Shortness Of Breath Is patient prescribed a controlled substance at d/c from ED?: No Referrals: Choco Addison DO [Primary Care Provider] - 1-2 days Charlie Arvizu MD [STAFF PHYSICIAN] - 1-2 days Time of Disposition: 09:47
--- NOTE | 2024-01-22 08:53 | XR ---
EXAMINATION TYPE: XR chest 2V DATE OF EXAM: 01/22/2024 COMPARISON: 07/10/2023 HISTORY: Shortness of breath TECHNIQUE: Frontal and lateral views of the chest are obtained. FINDINGS: Scattered senescent parenchymal changes noted. Hyperinflation compatible with COPD. No evidence for infiltrate. No evidence for atelectasis. Heart size is stable. Mediastinal structures are stable and grossly unremarkable. No evidence for hilar prominence. Degenerative changes dorsal spine. IMPRESSION: 1. No evidence for acute pulmonary disease.
[2024-01-22] MEDS: IPRATROPIUM-ALBUTEROL 3 ML NEB INHALATION STA (09:32)
--- NOTE | 2024-01-22 09:39 | US ---
EXAMINATION TYPE: US scrotum with doppler. Grayscale and color Doppler Duplex imaging performed of t svitlana scrotum. DATE OF EXAM: 01/22/2024 COMPARISON: NONE CLINICAL INDICATION: Male, 68 years old with history of pain; Fell, pain and swelling to right testic le EXAM MEASUREMENTS: TESTICLES: Right Testicle: 4.1 x 3.0 x 3.4 cm Left Testicle: 5.5 x 2.3 x 4.1 cm EPIDIDYMIS HEAD: Right Epididymis: 1.7 x 1.2 x 0.9 cm Left Epididymis: unable to identify cm Doppler performed to assess for testicular vascularity; good bilateral color flow and waveforms are s een. There is no evidence of testicular torsion. Presence of hydroceles: Right Presence of varicoceles: no ? Hemorrhagic cyst within right epididymal area = 1.2 x 1.1 x 1.5 cm IMPRESSION: 1. Probable hemorrhagic cyst right epididymal region.
[2024-01-22] MEDS: ACET/COD 300 MG/30 MG STARTER PACK 6 TAB BTL PO STA (09:59)
[2024-01-22 10:02] VITALS: BP 110/72; PULSE 90; TEMP 98.1
== END 2024-01-22 10:01 | disposition home or self-care (01) ==
LOC: EC 08:13
DX: S30.22XA Contusion of scrotum and testes, initial encounter (principal); J20.9 Acute bronchitis, unspecified; Z87.891 Personal history of nicotine dependence; W01.0XXA Fall on same level from slipping, tripping and stumbling without subsequent striking against object, initial encounter
CPT/HCPCS: 71046; 76870; 93975; 94640; 99284

== ENCOUNTER 2024-08-15 10:09 | Day surgery (SDC) | payer MEDICARE ==
[2024-08-11 10:50] VITALS: BMI 22.8
[2024-08-15] MEDS: ATROPINE SULFATE 0.4 MG/ML 1 ML VIAL IM ONE (10:55)
[2024-08-15] MEDS: IV FLUID CONTINUATION 1,000 ML IV ONE (10:56)
[2024-08-15] MEDS: LACTATED RINGERS 1,000 ML IV SCH (10:56)
[2024-08-15] MEDS ORDERED: fentaNYL (PF) 50 MCG/ML 2 ML AMP ONE (11:15)
[2024-08-15] MEDS ORDERED: LIDOCAINE 1% INJ 10MG/ML (20 ML MDV) ONE (11:15)
[2024-08-15] MEDS ORDERED: PROPOFOL 10 MG/ML 20 ML VIAL IV ONE (11:15)
[2024-08-15] MEDS ORDERED: KETAMINE HCL IN 0.9 % NACL 50 MG/5 ML SYRINGE ONE (11:15)
[2024-08-15] MEDS ORDERED: MIDAZOLAM 2 MG/2 ML VIAL ONE (11:15)
[2024-08-15] MEDS: LIDOCAINE 2% INJ 20 MG/ML INTRATRACH ONE (11:27)
[2024-08-15 11:42] VITALS: BP 148/76; RESP 16
[2024-08-15 12:07] VITALS: PULSE 77
--- NOTE | 2024-08-15 12:26 | PCN ---
PROCEDURE NOTE PROCEDURES: Bronchoscopy, airway examination, therapeutic lavage, BAL, right middle lobe. PREOPERATIVE DIAGNOSES: Asthma, sticky phlegm, cough, and chronic chest congestion. POSTOPERATIVE DIAGNOSES: Asthma, sticky phlegm, cough, and chronic chest congestion. MUD CLEANER OPERATOR: Dr. Mae. FIRST FLIGHT CREW TIME CLERK: Dr. Dianne Benito. The patient's procedure took place in room #1 [facility], [facility]. There was informed consent and universal timeout. DESCRIPTION OF PROCEDURE: Anesthesia provided monitored anesthesia care. After the patient was adequately sedated and being fully monitored, the bronchoscope was inserted through the right nostril. It passed through the right nasopharynx into the oropharynx. The hypopharynx was identified and topicalized. The hypopharyngeal structures, including anterior commissure, true cords, false cords, arytenoids, piriform sinuses, right and left, and vallecular, all appeared normal. Next, the bronchoscope was pushed through the glottic opening into the trachea. This was after topicalization of the trachea. The trachea itself appeared normal. The right and left mainstem were topicalized. The right upper lobe and its 3 segments, right middle lobe and its 2 segments, right lower lobe and its 5 segments, the left upper lobe proper and its 2 segments, the lingula and its 2 segments, and the left lower lobe and its 4 segments all had similar findings of thick yellow secretions noted throughout. They were very sticky and inspissated. They were suctioned with some difficulty. There was mucosal friability. There were hyperemia and erythema of the airways. The bronchoscope was then wedged into the right middle lobe. We did a formal BAL to the right middle lobe. 30 mL of blood-tinged fluid was recovered from the right middle lobe. There was no immediate complication. The patient tolerated the procedure well and will be recovered. The fluid will be sent for analysis. There was no dominant mass or tumor by the way. MMODL / IJN: [id number] /
[2024-08-15 22:50] LABS: Appearance,BF Turbid (Clear); RBC, Body Fluid 24250 /UL (0-2000)
[2024-08-18 10:17] LABS: Nucleated Cells, Body Fluid 7450 /UL
== END 2024-08-15 12:15 | disposition home or self-care (01) ==
LOC: ORWHC2ENDO 10:09
PROVIDERS: ATTEND Internal Medicine Critical Care Medicine
DX: J44.89 Other specified chronic obstructive pulmonary disease (principal); E78.5 Hyperlipidemia, unspecified; M19.90 Unspecified osteoarthritis, unspecified site; K21.9 Gastro-esophageal reflux disease without esophagitis; Z89.611 Acquired absence of right leg above knee; Z87.891 Personal history of nicotine dependence; Z79.899 Other long term (current) drug therapy
CPT/HCPCS: 89050; 87070; 87205; 87116; 87102; 87206; 31624; J2250; J0461; J2003 ×2; J3010; J2704; 87496; 87498; 87502; 87529; 87634; 87635; 87798; 88108; 88305

== ENCOUNTER 2024-11-08 20:10 | Inpatient (IN) | payer MEDICARE ==
--- NOTE | 2024-11-08 20:40 | ED ---
Chest Pain HPI - General Stated Complaint: Chest Pain Source: patient, EMS Mode of arrival: EMS - History of Present Illness Initial Comments: Patient is a 69-year-old male with GERD, hyperlipidemia, osteoarthritis presented to the emergency department with acute onset chest pain that started this afternoon at around 2 PM. Patient states that the chest pain started when he was walking around and got worse after he brought some boxes to the basement. He currently endorses a substernal chest tightness sensation seems to get worse with exertion. Currently endorses 2 out of 10 chest pain. Patient was brought in by EMS and did take 2 baby aspirin before he came in. He reported that the baby aspirin has helped his chest pain. Patient denies shortness of breath, fever, chills, cough, runny nose, sore throat, diarrhea, constipation, belly pain. Denies previous cardiac history. - Related Data Home Medications Medication Instructions Recorded Confirmed Dorzolamide HCl/Timolol Maleat 1 drop BOTH EYES BID 01/25/16 08/11/24 [Cosopt Eye Drops] Cyanocobalamin [Vitamin B-12] 1,000 mcg PO DAILY 02/18/18 08/11/24 Acetaminophen [Tylenol Arthritis] 650 mg PO DAILY 08/09/18 08/11/24 Cholecalciferol [Vitamin D3] 50 mcg PO DAILY 10/02/18 08/11/24 Finasteride [Proscar] 5 mg PO DAILY 10/02/18 08/11/24 Omeprazole 20 mg PO Q48H 05/02/21 08/11/24 Budesonide-Formot 160-4.5 Mcg 2 puff INHALATION BID 08/15/24 08/15/24 [Symbicort 160-4.5 Mcg Inhaler] Previous Rx's Medication Instructions Recorded Albuterol Inhaler [Ventolin Hfa 1 - 2 puff INHALATION Q6H PRN #1 01/22/24 Inhaler] each Allergies Allergy/AdvReac Type Severity Reaction Status Date / Time No Known Allergies Allergy Verified 11/08/24 20:17 Review of Systems ROS Statement: Those systems with pertinent positive or pertinent negative responses have been documented in the HPI. ROS Other: All systems not noted in ROS Statement are negative. Constitutional: Denies: fever, chills ENT: Denies: congestion Respiratory: Denies: cough, dyspnea Cardiovascular: Reports: chest pain. Denies: palpitations, dyspnea on exertion Gastrointestinal: Denies: abdominal pain, nausea, vomiting, diarrhea, constipation Genitourinary: Denies: urgency, dysuria Neurological: Denies: weakness, numbness, paresthesias Past Medical History Past Medical History: Eye Disorder, GERD/Reflux, Hearing Disorder / Deafness, Hyperlipidemia, Musculoskeletal Disorder, Osteoarthritis (OA), Prostate Disorder, Vascular Disorder Additional Past Medical History / Comment(s): Glaucoma bilat eyes, sl hearing loss, chronic back pain, hx detached retina zachery eyes, superficial thrombosis rt leg, chronic cough since january History of Any Multi-Drug Resistant Organisms: None Reported Past Surgical History: Adenoidectomy, Joint Replacement, Orthopedic Surgery, Tonsillectomy Additional Past Surgical History / Comment(s): Pain clinic proc to back, Zachery Cataract w/ lens implants, Rt knee x 2(first sx on rt meniscus repair, 2nd sx rt acl reconstruction),rt thumb cyst removed,Lt shoulder rotator cuff, detached retina repair zachery. and multiple eye surg. on the right, rt knee replacement Past Anesthesia/Blood Transfusion Reactions: Motion Sickness Additional Past Anesthesia/Blood Transfusion Reaction / Comment(s): no blood transfusion Past Psychological History: No Psychological Hx Reported Smoking Status: Former smoker Past Alcohol Use History: Occasional Past Drug Use History: None Reported - Past Family History Mother Family Medical History: Cancer, Congestive Heart Failure (CHF), COPD Additional Family Medical History / Comment(s): colon/bowel cancer Father Family Medical History: Congestive Heart Failure (CHF), COPD Additional Family Medical History / Comment(s): emphysema Sister(s) Family Medical History: No Reported History Additional Family Medical History / Comment(s): glaucoma General Exam - General Exam Comments Initial Comments: GENERAL: This is a 69-year-old in no apparent distress at the time of examination. Pleasant and cooperative. HEENT: Head is atraumatic, normocephalic. Pupils are equal, round, and reactive to light. Sclerae anicteric. Conjunctivae are clear. Mucus membranes of the mouth are moist. Neck is supple. RESPIRATORY: Clear to auscultation. No wheezes, rales, or rhonchi. No use of accessory muscles. Patient maintaining oxygen saturation greater than 92%. CARDIOVASCULAR: Regular rate and rhythm. S1 and S2 noted. No systolic or diastolic murmur auscultated. GASTROINTESTINAL: Abdomen is soft and round. Nontender to palpation. INTEGUMENTARY: No cyanosis. No jaundice. No rashes noted. No cellulitis noted. EXTREMITIES: 2+ peripheral pulses. No evidence of peripheral edema. No calf tenderness noted. NEUROLOGIC: Cranial nerves II-XII intact. PSYCHIATRIC: Awake, alert, and oriented X 3. Appropriate affect. Intact judgement and insight. Course Vital Signs 11/08/24 20:11 Temperature 97.7 F Pulse Rate 82 Respiratory 20 Rate Blood Pressure 118/80 O2 Sat by Pulse 100 Oximetry Chest Pain MDM - MDM Was pt. sent in by a medical professional or institution (, CALI, LANDING SUPPORT SPECIALIST, urgent care, hospital, or detention...) When possible be specific @ -No Did you speak to anyone other than the patient for history (EMS, parent, family, police, friend...)? What history was obtained from this source @ -Family Did you review nursing and triage notes (agree or disagree)? Why? @ -I reviewed and agree with nursing and triage notes Were old charts reviewed (outside hosp., previous admission, EMS record, old EKG, old radiological studies, urgent care reports/EKG's, detention records)? Report findings @ -No old charts were reviewed Differential Diagnosis? @ -Differential Chest Pain: Stable Angina, Unstable Angina, STEMI, NSTEMI Aortic Dissection, Pneumothorax, Musculoskeletal, Esophageal Spasm GERD, Cholecystitis, Pancreatitis, Zoster, this is not meant to be an all-inclusive list. EKG interpreted by me (3pts min.). @ -Sinus rhythm with occasional ventricular premature complexes, ventricular rate of 83/min, QTc interval 427 ms X-rays interpreted by me (1pt min.). @ -No acute cardiopulmonary disease/process CT interpreted by me (1pt min.). @ -None done U/S interpreted by me (1pt. min.). @ -None done What testing was considered but not performed or refused? (CT, X-rays, U/S, labs)? Why? @ -None What meds were considered but not given or refused? Why? @ -None Did you discuss the management of the patient with other professionals (professionals i.e. CALI Nichols, LANDING SUPPORT SPECIALIST, lab, RT, psych nurse, social studies department chair, manufacturing sales representative, teacher, education officer, corrections caseworker)? Give summary @ -Discussed with attending physician Was smoking cessation discussed for >3mins.? @ -No Was critical care preformed (if so, how long)? @ -No Were there social determinants of health that impacted care today? How? (Homelessness, low income, unemployed, alcoholism, drug addiction, transportation, low edu. Level, literacy, decrease access to med. care, usp, rehab)? @ -No Was there de-escalation of care discussed even if they declined (Discuss DNR or withdrawal of care, Hospice)? DNR status @ -No What co-morbidities impacted this encounter? (DM, HTN, Smoking, COPD, CAD, Cancer, CVA, ARF, Chemo, Hep., AIDS, mental health diagnosis, sleep apnea, morbid obesity)? @ -Hyperlipidemia, GERD, osteoarthritis Was patient admitted / discharged? Hospital course, mention meds given and route, prescriptions, significant lab abnormalities, going to OR and other pertinent info. @ -69-year-old male history of osteoarthritis presented to the ER with acute onset chest pain that started earlier this afternoon while he was walking a round. The chest pain got worse after he lifted some boxes. Cardiopulmonary disease/process. EKG showed sinus rhythm with ventricular rate of 83 bpm, QTc interval 427 ms. CBC showed slightly elevated white blood cell count. Troponin came back positive at 0.151. Sinus rhythm with ventricular rate of 71 bpm, T wave inversions in V5 and V6. QTc interval of 432 ms. Patient will be admitted to internal medicine service with cardiology consult for NSTEMI. Undiagnosed new problem with uncertain prognosis? @ -No Drug Therapy requiring intensive monitoring for toxicity (Heparin, Nitro, Insulin, Cardizem)? @ -No Were any procedures done? @ -No Diagnosis/symptom? @ -NSTEMI Acute, or Chronic, or Acute on Chronic? @ -Acute Uncomplicated (without systemic symptoms) or Complicated (systemic symptoms)? @ -Complicated Side effects of treatment? @ -No Exacerbation, Progression, or Severe Exacerbation? @ -No Poses a threat to life or bodily function? How? (Chest pain, [place], [place], pneumonia, PE, COPD, DKA, ARF, appy, cholecystitis, CVA, Diverticulitis, Homicidal, Suicidal, threat to staff... and all critical care pts) @ -No Disposition Clinical Impression: Acute non-ST elevation myocardial infarction (NSTEMI) Disposition: ADMITTED IP TO THIS HOSP Condition: Stable Time of Disposition: 22:45
[2024-11-08 21:39] LABS: Basophils # (A) 0.1 k/uL (0-0.2); Basophils % (A) 0 %; Eosinophils # (A) 0.1 k/uL (0-0.7); Eosinophils % (A) 1 %; HCT 39.8 % (39.0-53.0); Hypochromasia Slight; Lymphocytes # (A) 2.5 k/uL (1.0-4.8); Lymphocytes % (A) 18 %; MCH 30.1 pg (25.0-35.0); MCHC 32.6 g/dL (31.0-37.0); MCV 92.2 fL (80.0-100.0); Mean Platelet Volume 7.7; Monocytes # (A) 1.4 k/uL (0-1.0); Monocytes % (A) 11 %; Neutrophils # (A) 9.2 k/uL (1.3-7.7); Neutrophils % (A) 67 %; Platelet Count 431 k/uL (150-450); RBC 4.32 m/uL (4.30-5.90); RDW 14.9 % (11.5-15.5); WBC 13.6 k/uL (3.8-10.6)
--- NOTE | 2024-11-08 21:43 | XR ---
EXAMINATION TYPE: XR chest 2V DATE OF EXAM: 11/08/2024 9:38 PM COMPARISON: Chest radiographs from 01/22/2024 TECHNIQUE: XR chest 2V Frontal and lateral views of the chest. CLINICAL INDICATION:Male, 69 years old with history of Chest Pain; FINDINGS: Lungs/Pleura: There is no evidence of pleural effusion, focal consolidation, or pneumothorax. Pulmonary vascularity: Unremarkable. Heart/mediastinum: Cardiomediastinal silhouette is unremarkable. Musculoskeletal: Multiple level degenerative disc disease changes seen throughout the spine. Remote r ight distal clavicular fracture. IMPRESSION: No acute cardiopulmonary disease/process. [facility], , 11/08/2024 9:40 PM
[2024-11-08 21:44] LABS: ALT 34 U/L (4-49); AST 38 U/L (17-59); African American GFR (CKD) 57 (>60 ml/min/1.73 sqM); Albumin 3.6 g/dL (3.5-5.0); Alkaline Phosphatase 66 U/L (38-126); Amylase 64 U/L (30-110); Anion Gap 8 mmol/L; Blood Urea Nitrogen 26 mg/dL (9-20); Calcium 9.3 mg/dL (8.4-10.2); Carbon Dioxide 27 mmol/L (22-30); Chloride 101 mmol/L (98-107); Glucose 121 mg/dL (74-99); Lipase 103 U/L (23-300); Magnesium 2.3 mg/dL (1.6-2.3); Non-African American GFR(CKD) 50 (>60 ml/min/1.73 sqM); Potassium 4.1 mmol/L (3.5-5.1); Sodium 136 mmol/L (137-145); Total Bilirubin 0.4 mg/dL (0.2-1.3); Total Protein 6.8 g/dL (6.3-8.2)
[2024-11-08] MEDS ORDERED: NITROGLYCERIN SL TABS 0.4 MG TAB SUBLINGUAL PRN (22:17)
[2024-11-08] MEDS: ASPIRIN 81 MG PO STA (22:50)
[2024-11-08] MEDS: HEPARIN SODIUM 1,000 UN/ML (10ML VL) IV ONE (22:53)
[2024-11-08] MEDS: ATORVASTATIN 80 MG TAB PO SCH (22:53)
[2024-11-08] MEDS: HEPARIN SOD,PORK IN 0.45% NACL 25,000 UNIT in 0.45% NACL 1 250ML.BAG IV SCH (22:54)
[2024-11-09] MEDS ORDERED: ALBUTEROL NEBULIZED 2.5 MG/3 ML INHALATION PRN (05:29)
[2024-11-09] MEDS: HEPARIN SODIUM 1,000 UN/ML (10ML VL) IV PRN (05:30)
--- NOTE | 2024-11-09 05:50 | P.HPIM ---
History of Present Illness H&P Date: 11/09/24 History of present illness; patient 69-year-old gentleman with past medical history significant for BPH, hyperlipidemia, GERD who presents the ER because of chest pain. Patient said that he was all right last night when after dinner he started experiencing chest pain that was central location, nonradiating, pressure-like, constant, radiating down left arm with numbness, no aggravating or relieving factor associated chest pain. There was no complaint of orthopnea or PND. There was no complaint of shortness of breath at that time. There was no episode of diaphoresis during this episode of chest pain. Because of chest pain, patient became concerned and decided to come to the ER Initial lab work done in the ER showed WBC 13.6, hemoglobin 13, platelet count 431, sodium 130s, potassium 4.1, chloride 101, BUN 26, creatinine 1.43, glucose 121, troponin 0.151, KG done in the ER showed heart rate of 71, no ST segment elevation or depression seen, T wave inversions in lead III and aVF V5, V6 Chest x-ray done in the ER showed no acute cardiopulmonary process Patient admitted to internal medicine service REVIEW OF SYSTEMS: CONSTITUTIONAL: No fever, no malaise, no fatigue. HEENT: No recent visual problems or hearing problems. Denied any sore throat. CARDIOVASCULAR: As mentioned above PULMONARY: As mentioned above GASTROINTESTINAL: No diarrhea, no nausea, no vomiting, no abdominal pain. NEUROLOGICAL: No headaches, no weakness, no numbness. HEMATOLOGICAL: Denies any bleeding or petechiae. GENITOURINARY: Denies any burning micturition, frequency, or urgency. MUSCULOSKELETAL/RHEUMATOLOGICAL: Denies any joint pain, swelling, or any muscle pain. ENDOCRINE: Denies any polyuria or polydipsia. The rest of the 14-point review of systems is negative. PHYSICAL EXAMINATION: GENERAL: The patient is alert and oriented x3, not in any acute distress. Well developed, well nourished. HEENT: Pupils are round and equally reacting to light. EOMI. No scleral icterus. No conjunctival pallor. Normocephalic, atraumatic. No pharyngeal erythema. No thyromegaly. CARDIOVASCULAR: S1 and S2 present. No murmurs, rubs, or gallops. PULMONARY: Chest is clear to auscultation, no wheezing or crackles. ABDOMEN: Soft, nontender, nondistended, normoactive bowel sounds. No palpable organomegaly. MUSCULOSKELETAL: No joint swelling or deformity. EXTREMITIES: No cyanosis, clubbing, or pedal edema. NEUROLOGICAL: Gross neurological examination did not reveal any focal deficits. SKIN: No rashes. Assessment and plan NSTEMI Acute kidney injury Hyperlipidemia GERD History of asthmatic bronchitis Monitor vital signs Monitor CBC Monitor CMP Continue telemetry monitoring Serial EKGs Ordered troponins Ordered aspirin, Lipitor Ordered pharmacy dose heparin Ordered 2D echo Resume home meds Ordered lipid panel, HbA1c level, TSH Will consult cardiology Labs and medication were reviewed.. Continue same treatment. Continue with symptomatic treatment. Resume home medication. Monitor labs and vitals. DVT and GI prophylaxis. Further recommendations as per clinical course of the patient Dictation was produced using [employer] dictation software. please excuse any grammatical, word or spelling errors. Past Medical History Past Medical History: Eye Disorder, GERD/Reflux, Hearing Disorder / Deafness, Hyperlipidemia, Musculoskeletal Disorder, Osteoarthritis (OA), Prostate Disorder, Vascular Disorder Additional Past Medical History / Comment(s): Glaucoma bilat eyes, sl hearing loss, chronic back pain, hx detached retina zachery eyes, superficial thrombosis rt leg, chronic cough since january History of Any Multi-Drug Resistant Organisms: None Reported Past Surgical History: Adenoidectomy, Joint Replacement, Orthopedic Surgery, Tonsillectomy Additional Past Surgical History / Comment(s): Pain clinic proc to back, Zachery Cataract w/ lens implants, Rt knee x 2(first sx on rt meniscus repair, 2nd sx rt acl reconstruction),rt thumb cyst removed,Lt shoulder rotator cuff, detached retina repair zachery. and multiple eye surg. on the right, rt knee replacement Past Anesthesia/Blood Transfusion Reactions: Motion Sickness Additional Past Anesthesia/Blood Transfusion Reaction / Comment(s): no blood transfusion Past Psychological History: No Psychological Hx Reported Smoking Status: Former smoker Past Alcohol Use History: Occasional Past Drug Use History: None Reported - Past Family History Mother Family Medical History: Cancer, Congestive Heart Failure (CHF), COPD Additional Family Medical History / Comment(s): colon/bowel cancer Father Family Medical History: Congestive Heart Failure (CHF), COPD Additional Family Medical History / Comment(s): emphysema Sister(s) Family Medical History: No Reported History Additional Family Medical History / Comment(s): glaucoma Medications and Allergies Home Medications Medication Instructions Recorded Confirmed Type Dorzolamide HCl/Timolol Maleat 1 drop BOTH EYES BID 01/25/16 08/11/24 History [Cosopt Eye Drops] Cyanocobalamin [Vitamin B-12] 1,000 mcg PO DAILY 02/18/18 08/11/24 History Acetaminophen [Tylenol Arthritis] 650 mg PO DAILY 08/09/18 08/11/24 History Cholecalciferol [Vitamin D3] 50 mcg PO DAILY 10/02/18 08/11/24 History Finasteride [Proscar] 5 mg PO DAILY 10/02/18 08/11/24 History Omeprazole 20 mg PO Q48H 05/02/21 08/11/24 History Albuterol Inhaler [Ventolin Hfa 1 - 2 puff INHALATION Q6H PRN #1 01/22/24 08/11/24 Rx Inhaler] each Budesonide-Formot 160-4.5 Mcg 2 puff INHALATION BID 08/15/24 08/15/24 History [Symbicort 160-4.5 Mcg Inhaler] Allergies Allergy/AdvReac Type Severity Reaction Status Date / Time No Known Allergies Allergy Verified 11/08/24 20:17 Physical Exam Vitals: Vital Signs Temp Pulse Resp BP Pulse Ox 11/09/24 04:59 97.7 F 68 17 127/82 99 11/09/24 01:00 62 15 100/62 98 11/09/24 00:00 60 15 106/61 96 11/08/24 22:56 77 17 114/64 95 11/08/24 20:11 97.7 F 82 20 118/80 100 Intake and Output 11/08/24 11/08/24 11/09/24 14:59 22:59 06:59 Other: Weight 78.925 kg Results CBC & Chem 7: 11/08/24 20:20 11/08/24 20:20 Labs: Abnormal Lab Results - Last 24 Hours (Table) 11/08/24 11/08/24 11/08/24 Range/Units 20:20 20:20 20:20 WBC 13.6 H (3.8-10.6) k/uL Neutrophils # 9.2 H (1.3-7.7) k/uL Monocytes # 1.4 H (0-1.0) k/uL APTT (22.0-30.0) sec Sodium 136 L (137-145) mmol/L BUN 26 H (9-20) mg/dL Creatinine 1.43 H (0.66-1.25) mg/dL Glucose 121 H (74-99) mg/dL Troponin I 0.151 H* (0.000-0.034) ng/mL 11/08/24 11/09/24 Range/Units 23:35 04:37 WBC (3.8-10.6) k/uL Neutrophils # (1.3-7.7) k/uL Monocytes # (0-1.0) k/uL APTT 38.9 H (22.0-30.0) sec Sodium (137-145) mmol/L BUN (9-20) mg/dL Creatinine (0.66-1.25) mg/dL Glucose (74-99) mg/dL Troponin I 0.335 H* (0.000-0.034) ng/mL
[2024-11-09] MEDS: SYMBICORT 160-4.5 MCG INHALER INHALATION SCH (09:44)
[2024-11-09 10:22] LABS: LDL Cholesterol,Calculated 134.9 mg/dL (0.0-131.0)
--- NOTE | 2024-11-09 10:30 | P.CRDCN ---
History of Present Illness Consult date: 11/09/24 History of present illness: The patient is a pleasant 69-year-old gentleman with no significant past medical history of diabetes or hypertension or dyslipidemia or any cardiovascular disease presented to the emergency department complaining of chest discomfort. He was in his usual state of health till yesterday when he started experiencing discomfort in the epigastric area and lower chest with no associated symptoms of shortness of breath or dizziness or lightheadedness or any feeling of heart racing or fluttering or presyncope or syncope. He felt that an acid reflux but the discomfort got more intense where he decided to come to the hospital. The EKG showed sinus mechanism with ST changes inferiorly and inferolaterally concerning for severe underlying coronary artery disease and appears to be somewhat dynamic associated with abnormal cardiac enzymes and troponin consistent with acute coronary syndrome. Chest x-ray did not show any acute abnormalities. Currently still having mild ongoing chest discomfort appears to be improved on heparin IV. He was started on a statin and he was given aspirin as well. The physical examination is remarkable for regular rhythm with a clear breathing sounds bilaterally and no edema was noted in the lower extremities Assessment Acute coronary syndrome Plan Continue the current medical regimen including heparin IV Add aspirin Continue statin Consider adding beta-alex Obtain an echocardiogram Proceed with coronary angiogram Past Medical History Past Medical History: Eye Disorder, GERD/Reflux, Hearing Disorder / Deafness, Hyperlipidemia, Musculoskeletal Disorder, Osteoarthritis (OA), Prostate Disorder, Vascular Disorder Additional Past Medical History / Comment(s): Glaucoma bilat eyes, sl hearing loss, chronic back pain, hx detached retina zachery eyes, superficial thrombosis rt leg, chronic cough since january History of Any Multi-Drug Resistant Organisms: None Reported Past Surgical History: Adenoidectomy, Joint Replacement, Orthopedic Surgery, Tonsillectomy Additional Past Surgical History / Comment(s): Pain clinic proc to back, Zahcery Cataract w/ lens implants, Rt knee x 2(first sx on rt meniscus repair, 2nd sx rt acl reconstruction),rt thumb cyst removed,Lt shoulder rotator cuff, detached retina repair zachery. and multiple eye surg. on the right, rt knee replacement Past Anesthesia/Blood Transfusion Reactions: Motion Sickness Additional Past Anesthesia/Blood Transfusion Reaction / Comment(s): no blood tra nsfusion Past Psychological History: No Psychological Hx Reported Smoking Status: Former smoker Past Alcohol Use History: Occasional Past Drug Use History: None Reported - Past Family History Mother Family Medical History: Cancer, Congestive Heart Failure (CHF), COPD Additional Family Medical History / Comment(s): colon/bowel cancer Father Family Medical History: Congestive Heart Failure (CHF), COPD Additional Family Medical History / Comment(s): emphysema Sister(s) Family Medical History: No Reported History Additional Family Medical History / Comment(s): glaucoma Medications and Allergies Home Medications Medication Instructions Recorded Confirmed Type Dorzolamide HCl/Timolol Maleat 1 drop BOTH EYES BID 01/25/16 11/09/24 History [Cosopt Eye Drops] Finasteride [Proscar] 5 mg PO DAILY 10/02/18 11/09/24 History Omeprazole 20 mg PO DAILY 05/02/21 11/09/24 History Albuterol Inhaler [Ventolin Hfa 1 - 2 puff INHALATION Q6H PRN #1 01/22/24 11/09/24 Rx Inhaler] each Budesonide-Formot 160-4.5 Mcg 2 puff INHALATION BID 08/15/24 11/09/24 History [Symbicort 160-4.5 Mcg Inhaler] Allergies Allergy/AdvReac Type Severity Reaction Status Date / Time No Known Allergies Allergy Verified 11/08/24 20:17 Physical Exam Vitals: Vital Signs Temp Pulse Pulse Resp BP BP Pulse Ox 11/09/24 08:00 73 18 138/77 97 11/09/24 06:04 66 17 98 11/09/24 04:59 97.7 F 68 17 127/82 99 11/09/24 01:00 62 15 100/62 98 11/09/24 00:00 60 15 106/61 96 11/08/24 22:56 77 17 114/64 95 11/08/24 20:11 97.7 F 82 20 118/80 100 Intake and Output 11/08/24 11/09/24 11/09/24 22:59 06:59 14:59 Intake Total 62.666 Balance 62.666 Intake: Intake, IV Titration 62.666 Amount Heparin Sod,Pork in 0.45% 62.666 NaCl 25,000 unit In 0.45 % NaCl 1 250ml.bag @ 12 UNITS/KG/HR 9.471 mls/hr IV .Q24H [facility] Rx#: [id number] Other: Weight 78.925 kg Results 11/08/24 20:20 11/08/24 20:20 Cardiac Enzymes 11/08/24 11/08/24 11/08/24 Range/Units 20:20 20:20 23:35 AST 38 (17-59) U/L Troponin I 0.151 H* 0.335 H* (0.000-0.034) ng/mL 11/09/24 Range/Units 04:37 AST (17-59) U/L Troponin I 2.280 H* (0.000-0.034) ng/mL Coagulation 11/08/24 11/09/24 Range/Units 20:20 04:37 PT 11.0 (10.0-12.5) sec APTT 24.0 38.9 H (22.0-30.0) sec Lipids 11/09/24 Range/Units 04:37 Triglycerides 121.00 (0.00-149.00) mg/dL Cholesterol 218.00 H (0.00-200.00) mg/dL HDL Cholesterol 58.90 (40.00-60.00) mg/dL Cholesterol/HDL Ratio 3.70 Ratio CBC 11/08/24 Range/Units 20:20 WBC 13.6 H (3.8-10.6) k/uL RBC 4.32 (4.30-5.90) m/uL Hgb 13.0 (13.0-17.5) gm/dL Hct 39.8 (39.0-53.0) % Plt Count 431 (150-450) k/uL Comprehensive Metabolic Panel 11/08/24 Range/Units 20:20 Sodium 136 L (137-145) mmol/L Potassium 4.1 (3.5-5.1) mmol/L Chloride 101 (98-107) mmol/L Carbon Dioxide 27 (22-30) mmol/L BUN 26 H (9-20) mg/dL Creatinine 1.43 H (0.66-1.25) mg/dL Glucose 121 H (74-99) mg/dL Calcium 9.3 (8.4-10.2) mg/dL AST 38 (17-59) U/L ALT 34 (4-49) U/L Alkaline Phosphatase 66 (38-126) U/L Total Protein 6.8 (6.3-8.2) g/dL Albumin 3.6 (3.5-5.0) g/dL Current Medications Generic Name Dose Route Start Last Admin Trade Name Freq PRN Reason Stop Dose Admin Albuterol Sulfate 2.5 mg 11/09/24 05:29 Albuterol Nebulized 2.5 Mg/3 Ml INHALATION RT-Q6H PRN Shortness Of Breath Atorvastatin Calcium 80 mg 11/08/24 22:30 11/08/24 22:53 Atorvastatin 80 Mg Tab PO 80 mg DAILY LALITA Administration Budesonide/Formoterol Fumarate 2 puff 11/09/24 08:00 11/09/24 09:44 Symbicort 160-4.5 Mcg Inhaler INHALATION 2 puff RT-BID LALITA Administration Heparin Sodium (Porcine) 0 unit 11/08/24 22:17 11/09/24 05:30 Heparin Sodium 1,000 Un/Ml (10ml Vl) IV 1,972.5 unit Q6HR PRN Administration Angina Protocol Heparin Sodium/Sodium Chloride 250 mls @ 9.471 mls/hr 11/08/24 22:30 11/09/24 05:31 25,000 unit/ Sodium Chloride IV 14 units/kg/hr .Q24H LALITA 11.05 mls/hr Titration Protocol 12 UNITS/KG/HR Metoprolol Tartrate 25 mg 11/09/24 09:00 Metoprolol Tartrate 25 Mg Tab PO BID [facility] Nitroglycerin 0.4 mg 11/08/24 22:17 Nitroglycerin Sl Tabs 0.4 Mg Tab SUBLINGUAL Q5M PRN Chest Pain Intake and Output 11/08/24 11/09/24 11/09/24 22:59 06:59 14:59 Intake Total 62.666 Balance 62.666 Intake: Intake, IV Titration 62.666 Amount Heparin Sod,Pork in 0.45% 62.666 NaCl 25,000 unit In 0.45 % NaCl 1 250ml.bag @ 12 UNITS/KG/HR 9.471 mls/hr IV .Q24H [facility] Rx#: [id number] Other: Weight 78.925 kg 11/08/24 20:20 11/08/24 20:20
[2024-11-09] MEDS: METOPROLOL TARTRATE 25 MG TAB PO SCH (10:34)
[2024-11-09] MEDS: ASPIRIN 81 MG PO SCH (10:34)
[2024-11-09] MEDS: IV FLUID CONTINUATION 1,000 ML IV ONE (11:48)
[2024-11-09] MEDS: MIDAZOLAM 2 MG/2 ML VIAL IVP ONE ×2 (12:33→14:27)
[2024-11-09] MEDS: IV FLUID CONTINUATION 500 ML IV ONE (14:00)
[2024-11-09] MEDS: LIDOCAINE 1% INJ 10MG/ML (20 ML MDV) SQ ONE (14:33)
[2024-11-09] MEDS: VERAPAMIL SYRINGE (5 MG/10 ML) INTRAARTER ONE (14:35)
[2024-11-09] MEDS: fentaNYL (PF) 50 MCG/ML 2 ML AMP IVP ONE (14:36)
[2024-11-09] MEDS: PRASUGREL 10 MG TAB PO ONE (14:41)
[2024-11-09] MEDS: IOPAMIDOL-370 100ML BTL INJ ONE ×2 (15:00→15:39)
[2024-11-09] MEDS: NITROGLYCERIN 1000MCG/10ML SYRINGE INTRACORON ONE (15:07)
[2024-11-09] MEDS: MORPHINE SULFATE 4 MG/ML SYRINGE IVP ONE ×2 (15:42→15:45)
[2024-11-09] MEDS ORDERED: NITROGLYCERIN SL TABS 0.4 MG TAB SUBLINGUAL PRN (15:51)
[2024-11-09] MEDS ORDERED: RX INFO: IV CONTRAST WAS GIVEN 1 EACH MISC MISCELLANE PRN (15:51)
[2024-11-09] MEDS ORDERED: MAG HYDROX/AL HYDROX/SIMETH 30 ML CUP PO PRN (15:51)
[2024-11-09] MEDS ORDERED: ZOLPIDEM 5 MG TAB PO PRN (15:51)
[2024-11-09] MEDS ORDERED: ATROPINE SULFATE 0.1 MG/ML 10ML SYRINGE IV PRN (15:51)
--- NOTE | 2024-11-09 15:57 | P.PCN ---
Date of Procedure: 11/09/24 Operative Findings: CARDIAC CATHETERIZATION AND PERCUTANEOUS CORONARY INTERVENTION PERFORMING PHYSICIAN: Shahid Joyner MD, [facility] PROCEDURE PERFORMED: 1. Selective right and left coronary angiogram and left heart catheterization 2. Successful stenting of proximal LCx using 3.5 x 28 mm Xience ISSAC with an excellent angiographic results 3. Successful stenting of the mid and proximal to mid RCA using a 3.5 x 28 and 3.5 x 18 mm Xience ISSAC with an excellent angiographic result 4. Adjunctive use of IVUS 5. Ultrasound-guided access of the right radial artery INDICATION: Acute non-ST ovation myocardial infarction COMPLICATION: None APPROACH: Right radial artery LEVEL OF SEDATION: Moderate with the sedation time off 70 minutes PROCEDURE DESCRIPTION: After obtaining informed consent the patient was brought to the cardiac Logistics Team Leader. The right radial artery was cannulated using micropuncture technique under ultrasound guidance the micropuncture wire passed easily then I placed a 6 Bulgarian 11 cm sheath at the right radial artery. After that I gave the patient 2 mg of verapamil intra-arterial and 5000's of heparin intravenous with continuous ACT monitoring. Selective right and left coronary angiogram performed using JR4 and JL 3.5 catheters with left heart catheterization performed using a pigtail catheter with after that I decided to intervene on the LCx and RCA with anticoagulation continued using heparin with continuous ACT monitoring. Subsequently I did engage the left main using JL 3.5 guiding catheter and wired using a run-through wire. IVUS was performed and showed a diameter around 3.5 mm. Predilatation was performed using 2.5 mm balloon before I deployed 3.5 x 28 mm stent postdilated using 3.5 mm NC balloon with final angiogram and IVUS showing good angiographic results. After that I did engage the RCA using JR 3 5 guiding catheter and wired using a run-through wire. I did predilatation initially using 2.5 mm balloon and subsequently 3 mm NC balloon. After that I deployed a 3.5 x 28 and 3.5 x 18 mm stent postdilated using 4 mm balloon with IVUS was performed only advanced to the proximal RCA and did not make the turn to the mid RCA. Final angiogram showed good angiographic results and the procedure was completed with no complication SELECTIVE CORONARY ANGIOGRAM: The right coronary artery: Large caliber vessel and a dominant vessel with a tight lesion involving the midportion and intermediate to severe disease involving the distal portion Left main: Is angiographically normal and calcified. The left circumflex: Large-caliber vessel nondominant vessel with critical disease involving the proximal part The left anterior descending artery: The LAD and the proximal portion has intermediate lesion and in the midportion has intermediate to severe lesion. HEMODYNAMICS: The LVEDP was about 10 mmHg with no significant gradient across aortic valve CONCLUSION: 1. Critical disease involving the proximal LCx. I did perform successful PCI of the LCx 2. Critical disease involving the mid RCA. I did perform successful PCI of the RCA. The patient still have intermediate disease involving the distal RCA 3. Intermediate disease involving the proximal and mid left anterior descending 4. Normal left-sided filling pressure POSTPROCEDURE MANAGEMENT: 1. Dual antiplatelet therapy using aspirin and Effient for 12 month 2. Aggressive cholesterol control 3. Follow-up with the patient
[2024-11-09] MEDS: NALOXONE 0.4 MG/ML 1 ML VIAL IVP ONE (15:58)
[2024-11-09] MEDS: FLUMAZENIL 0.1 MG/ML 5 ML VIAL IVP ONE (16:06)
[2024-11-10] MEDS: PRASUGREL 10 MG TAB PO SCH (08:07)
[2024-11-10 08:16] LABS: African American GFR (CKD) 70 (>60 ml/min/1.73 sqM); Non-African American GFR(CKD) 61 (>60 ml/min/1.73 sqM)
[2024-11-10 09:57] VITALS: BMI 23.3
[2024-11-10 10:02] VITALS: RESP 18; TEMP 98.1
[2024-11-10 11:57] VITALS: BP 115/70; PULSE 76
[2024-11-10] MEDS: LOSARTAN 25 MG TAB PO SCH (14:17)
--- NOTE | 2024-11-10 14:20 | P.PN ---
Subjective Progress Note Date: 11/10/24 The patient is a pleasant 69-year-old gentleman with no significant past medical history of diabetes or hypertension or dyslipidemia or any cardiovascular disease presented to the emergency department complaining of chest discomfort. He was in his usual state of health till yesterday when he started experiencing discomfort in the epigastric area and lower chest with no associated symptoms of shortness of breath or dizziness or lightheadedness or any feeling of heart racing or fluttering or presyncope or syncope. He felt that an acid reflux but the discomfort got more intense where he decided to come to the hospital. The EKG showed sinus mechanism with ST changes inferiorly and inferolaterally concerning for severe underlying coronary artery disease and appears to be somewhat dynamic associated with abnormal cardiac enzymes and troponin consistent with acute coronary syndrome. Chest x-ray did not show any acute abnormalities. Currently still having mild ongoing chest discomfort appears to be improved on heparin IV. He was started on a statin and he was given aspirin as well. The physical examination is remarkable for regular rhythm with a clear breathing sounds bilaterally and no edema was noted in the lower extremities 11/10/2024 Patient seen and examined at bedside this a.m. He denies having any active chest pain chest pressure shortness of breath No signs of congestive heart failure, appears euvolemic Hemodynamically stable, right radial access site appears to be intact with no signs of hematoma or bleeding On exam S1-S2 is audible, no significant murmurs, No swelling in the legs, JVP is not elevated Lungs are clear to auscultate with no crackles or rhonchi Abdomen is nondistended, nontender, bowel sounds are present Alert oriented, no focal neurological deficit, detailed neuroexam was not performed however Assessment Acute coronary syndrome CAD s/p PCI to LCx and RCA Residual intermediate disease in LAD Plan Aspirin Effient, statin, beta-alex Add losartan 12.5 mg daily Echocardiogram does not show any significant wall motion abnormality. It does show mild to moderate mitral regurgitation. I have educated the patient the importance of DAPT therapy. He cannot omit his dual antiplatelet therapy and I have given him clear instructions to contact us if in case he does not have access to his medications. Patient is euvolemic, no chest pain, right radial access site appears intact with no signs of hematoma or bleeding Patient is cleared to be discharge from cardiac standpoint with recommend outpatient follow-up with Dr. Jang Outpatient cardiac rehab and possible stress testing if clinically indicated for the intermediate residual disease in LAD territory. Objective - Vital Signs Vital signs: Vital Signs Temp 98.1 F 11/10/24 08:00 Pulse 76 11/10/24 11:40 Resp 18 11/10/24 11:40 BP 115/70 11/10/24 11:40 Pulse Ox 95 11/10/24 11:40 FiO2 Intake & Output 11/09/24 11/10/24 11/10/24 18:59 06:59 18:59 Intake Total 540 160.409 360 Output Total 0 2 Balance 540 158.409 360 Weight 78.925 kg 80.1 kg 80.1 kg Intake: IV 300 Intake, IV Titration 160.409 Amount Heparin Sod,Pork in 0.45% 160.409 NaCl 25,000 unit In 0.45 % NaCl 1 250ml.bag @ 12 UNITS/KG/HR 9.471 mls/hr IV .Q24H [facility]1983 Rx#: [id number] Oral 240 360 Output: Gastric Drainage 0 Urine 0 2 Stool 0 0 Urine/Stool Mix 0 Emesis 0 Oral Regurgitation 0 Other 0 Other: Voiding Method Toilet Toilet Toilet # Voids 0 # Bowel Movements 0 - Labs CBC & Chem 7: 11/08/24 20:20 11/10/24 07:54
--- NOTE | 2024-11-10 14:41 | P.DS ---
Providers Date of admission: 11/08/24 22:23 Expected date of discharge: 11/10/24 Attending physician: Wilton Jones MD Consults: 11/08/24 22:17 Consult Physician Urgent Consulting Provider: Paula Casas Consult Reason/Comments: NSTEMI Do you want consulting provider notified?: Yes 11/09/24 15:51 Consult Physician Routine Consulting Provider: [facility] Consult Reason/Comments: Post Interventional patient Do you want consulting provider notified?: Already Contacted Primary care physician: Choco Addison Hospital Course: Discharge diagnoses: NSTEMI: CAD status post PCI to LCx and RCA, residual intermediate disease in LAD. Acute kidney injury Hypertension Hyperlipidemia GERD History of asthmatic bronchitis Patient presented with chest discomfort, EKG showed no sinus rhythm with ST changes inferiorly and inferolaterally concerning for severe underlying coronary artery disease, also had abnormal cardiac enzymestroponin consistent with ACS. Chest x-ray was negative for acute process. Treated with heparin drip during hospitalization. Cardiology consultedunderwent cardiac catheterization with PCI to left circumflex and RCA, also showed residual intermediate disease in the LAD. Echocardiogram showed normal EF, mild to moderate MR. Patient continued on aspirin, Effient, statin, beta-alex and losartan at discharge. Patient's symptoms remain resolved. Okay to discharge per cardiology and outpatient follow-up. Hospital course: History of present illness; patient 69-year-old gentleman with past medical history significant for BPH, hyperlipidemia, GERD who presents the ER because of chest pain. Patient said that he was all right last night when after dinner he started experiencing chest pain that was central location, nonradiating, pressure-like, constant, radiating down left arm with numbness, no aggravating or relieving factor associated chest pain. There was no complaint of orthopnea or PND. There was no complaint of shortness of breath at that time. There was no episode of diaphoresis during this episode of chest pain. Because of chest pain, patient became concerned and decided to come to the ER Initial lab work done in the ER showed WBC 13.6, hemoglobin 13, platelet count 431, sodium 130s, potassium 4.1, chloride 101, BUN 26, creatinine 1.43, glucose 121, troponin 0.151, KG done in the ER showed heart rate of 71, no ST segment elevation or depression seen, T wave inversions in lead III and aVF V5, V6 Chest x-ray done in the ER showed no acute cardiopulmonary process Patient was admitted hospital for further evaluation and management of NSTEMI, was treated with heparin drip. Cardiology consulted,underwent cardiac catheterization with PCI to left circumflex and RCA, also showed residual intermediate disease in the LAD. Echocardiogram showed normal EF, mild to moderate MR. Patient continued on aspirin, Effient, statin, beta-alex and losartan at discharge. Patient's symptoms remain resolved. Okay to discharge per cardiology and outpatient follow-up. Follow-up with PCP in 1 week Follow-up with cardiology as outpatient. PHYSICAL EXAMINATION: GENERAL: The patient is A&O x3, NAD HEENT: EOMI, Sclerae anicteric, Moist Mucous membranes Neck: Supple, Non tender, No JVD PULMONARY: Equal breath souds B/L, No wheezing, No crackles. CARDIOVASCULAR: S1, S2 present. No murmurs, rubs, or gallops. ABDOMEN: Soft, nontender, nondistended, normoactive bowel sounds. No guarding or rebound tenderness. MUSCULOSKELETAL: No edema, No cyanosis. No clubbing. Normal ROM. Intact peripheral pulses. NEUROLOGICAL: CN 2-12 grossly intact. No FND SKIN: No rashes. Dictation was produced using [employer] dictation software. please excuse any grammatical, word or spelling errors. Plan - Discharge Summary New Discharge Prescriptions: New Prasugrel [Effient] 10 mg PO DAILY 30 Days #30 tab Aspirin 81 mg PO DAILY #90 tab Losartan [Cozaar] 12.5 mg PO DAILY #30 tab Atorvastatin [Lipitor] 80 mg PO DAILY #30 tab Metoprolol Tartrate [Lopressor] 25 mg PO BID #60 tab Nitroglycerin Sl Tabs [Nitrostat] 0.4 mg SUBLINGUAL Q5M PRN #14 tab PRN Reason: Chest Pain Continue Dorzolamide HCl/Timolol Maleat [Cosopt Eye Drops] 1 drop BOTH EYES BID Finasteride [Proscar] 5 mg PO DAILY Budesonide-Formot 160-4.5 Mcg [Symbicort 160-4.5 Mcg Inhaler] 2 puff INHALATION RT-BID cycloSPORINE [Restasis Multidose] 1 drop BOTH EYES BID Albuterol Sulfate [Ventolin HFA] 2 puff INHALATION RT-QID PRN PRN Reason: Shortness Of Breath Multivitamins, Thera [Multivitamin (formulary)] 1 tab PO DAILY Omeprazole 20 mg PO BID-W/MEALS Montelukast [Singulair] 10 mg PO HS Discharge Medication List Dorzolamide HCl/Timolol Maleat [Cosopt Eye Drops] 1 drop BOTH EYES BID 01/25/16 [History] Finasteride [Proscar] 5 mg PO DAILY 10/02/18 [History] Omeprazole 20 mg PO BID-W/MEALS 05/02/21 [History] Budesonide-Formot 160-4.5 Mcg [Symbicort 160-4.5 Mcg Inhaler] 2 puff INHALATION RT-BID 08/15/24 [History] Albuterol Sulfate [Ventolin HFA] 2 puff INHALATION RT-QID PRN 11/09/24 [History] Montelukast [Singulair] 10 mg PO HS 11/09/24 [History] Multivitamins, Thera [Multivitamin (formulary)] 1 tab PO DAILY 11/09/24 [History] cycloSPORINE [Restasis Multidose] 1 drop BOTH EYES BID 11/09/24 [History] Aspirin 81 mg PO DAILY #90 tab 11/10/24 [Rx] Atorvastatin [Lipitor] 80 mg PO DAILY #30 tab 11/10/24 [Rx] Losartan [Cozaar] 12.5 mg PO DAILY #30 tab 11/10/24 [Rx] Metoprolol Tartrate [Lopressor] 25 mg PO BID #60 tab 11/10/24 [Rx] Nitroglycerin Sl Tabs [Nitrostat] 0.4 mg SUBLINGUAL Q5M PRN #14 tab 11/10/24 [Rx] Prasugrel [Effient] 10 mg PO DAILY 30 Days #30 tab 11/10/24 [Rx] Follow up Appointment(s)/Referral(s): Shahid Joyner MD [STAFF PHYSICIAN] - 1 Week Choco Addison DO [Primary Care Provider] - 1-2 days Discharge Disposition: HOME SELF-CARE
--- NOTE | 2024-11-10 18:32 | CA ---
Transthoracic Echo Report Name: Juarez Nelson Age: 69 Gender: M : 1955 Exam Date: 11/10/2024 08:45 Exam Location: [facility] Ht (in): 73 Wt (lb): 174 Ordering Physician: Reggie Howard MD Attending/Referring Phys: Meat Smoker Paz Mckeon RDCS Procedure CPT: Indications: Chest Pain Cardiac Hx: Technical Quality: Fair Contrast 1: Total Dose (mL): Contrast 2: Total Dose (mL): MEASUREMENTS (Male / Female) Normal Values 2D ECHO LV Diastolic Diameter PLAX 4.6 cm 4.2 - 5.9 / 3.9 - 5.3 cm LV Systolic Diameter PLAX 3.0 cm IVS Diastolic Thickness 1.0 cm 0.6 - 1.0 / 0.6 - 0.9 cm LVPW Diastolic Thickness 1.0 cm 0.6 - 1.0 / 0.6 - 0.9 cm LV Relative Wall Thickness 0.4 RV Internal Dim ED PLAX 2.3 cm LVOT Diameter 1.8 cm LA Systolic Diameter LX 4.4 cm 3.0 - 4.0 / 2.7 - 3.8 cm LV Diastolic Volume MOD BP 63.4 cm??? 67 - 155 / 56 - 104 cm??? LV Systolic Volume MOD BP 32.3 cm??? 22 - 58 / 19 - 49 cm??? LV Ejection Fraction MOD BP 49.1 % >= 55 % LV Cardiac Index MOD BP 1296.4 cm???/min???m??? LV Diastolic Volume MOD 4C 67.2 cm??? LV Systolic Volume MOD 4C 34.3 cm??? LV Ejection Fraction MOD 4C 49.0 % LV Cardiac Index MOD 4C 1374.0 cm???/min???m??? LV Diastolic Length 4C 7.0 cm LV Systolic Length 4C 6.3 cm LV Diastolic Volume MOD 2C 56.5 cm??? LV Systolic Volume MOD 2C 27.5 cm??? LV Ejection Fraction MOD 2C 51.3 % LV Cardiac Index MOD 2C 1206.3 cm???/min???m??? LV Diastolic Length 2C 6.6 cm LV Systolic Length 2C 5.7 cm M-MODE Aortic Root Diameter MM 3.8 cm LA Systolic Diameter MM 3.8 cm LA Ao Ratio MM 1.0 AV Cusp Separation MM 2.3 cm DOPPLER AI Peak Velocity 224.4 cm/s AI Peak Gradient 20.1 mmHg AI Pressure Half Time 736.4 ms MV Area PHT 3.0 cm??? Mitral E Point Velocity 73.6 cm/s Mitral A Point Velocity 104.3 cm/s Mitral E to A Ratio 0.7 MV Deceleration Time 255.9 ms TR Peak Velocity 312.9 cm/s TR Peak Gradient 39.2 mmHg Right Ventricular Systolic Press 43.9 mmHg FINDINGS Left Ventricle Left ventricular ejection fraction is estimated at 50-55%. Mildly decreased left ventricular ejection fraction. Left ventricular cavity size normal. Left ventricular wall thickness normal. Right Ventricle Mild right ventricular dilatation. Mild pulmonary hypertension. Right Atrium Mild right atrial dilatation. Left Atrium Mildly increased left atrial diameter. Mitral Valve Structurally normal mitral valve. [id number] mitral regurgitation. No mitral stenosis. Aortic Valve Trileaflet aortic valve. No aortic valve stenosis or regurgitation. Tricuspid Valve Structurally normal tricuspid valve. [id number] tricuspid regurgitation. Pulmonic Valve Structurally normal pulmonic valve. Trace to mild pulmonic regurgitation. No pulmonic stenosis. Pericardium No pericardial or pleural effusion. Aorta Aorta at upper limits of normal. CONCLUSIONS Indication for the procedure chest pain non-Q wave myocardial infarction Left ventricular ejection fraction at the lower limits of normal of 50-55% Previewed by: Dr. Jamie Hernandez MD (Electronically Signed) Final Date: 10 November 2024 18:31
== END 2024-11-10 15:20 | disposition home or self-care (01) | DRG 322 ==
LOC: EC 20:10 → 3SCARD 22:23
PROVIDERS: ADMIT Internal Medicine; ATTEND Internal Medicine
PROC: 027135Z Dilation of Coronary Artery, Two Arteries with Two Drug-eluting Intraluminal Devices, Percutaneous Approach (ICD-10-PCS; principal; 2024-11-09 11:13)
PROC: B241ZZ3 Ultrasonography of Multiple Coronary Arteries, Intravascular (ICD-10-PCS; 2024-11-09 11:13)
PROC: 4A023N7 Measurement of Cardiac Sampling and Pressure, Left Heart, Percutaneous Approach (ICD-10-PCS; 2024-11-09 11:13)
PROC: B2111ZZ Fluoroscopy of Multiple Coronary Arteries using Low Osmolar Contrast (ICD-10-PCS; 2024-11-09 11:13)
DX: I21.3 ST elevation (STEMI) myocardial infarction of unspecified site (principal); N17.9 Acute kidney failure, unspecified; I10 Essential (primary) hypertension; J45.909 Unspecified asthma, uncomplicated; I34.0 Nonrheumatic mitral (valve) insufficiency; E78.5 Hyperlipidemia, unspecified; K21.9 Gastro-esophageal reflux disease without esophagitis; H91.90 Unspecified hearing loss, unspecified ear; I25.10 Atherosclerotic heart disease of native coronary artery without angina pectoris; Z96.651 Presence of right artificial knee joint; Z79.1 Long term (current) use of non-steroidal anti-inflammatories (NSAID); Z79.51 Long term (current) use of inhaled steroids; Z79.899 Other long term (current) drug therapy; Z87.891 Personal history of nicotine dependence; Z82.49 Family history of ischemic heart disease and other diseases of the circulatory system
CPT/HCPCS: 36415; 71046; 80053; 80061; 82150; 82565; 83036; 83690; 83735; 84443; 84484; 85025; 85610; 85730; 92978; 92979; 93005; 93306; 93458; 94640; 96365; 96366; 99285

== ENCOUNTER 2024-12-24 10:55 | Emergency (ER) | payer MEDICARE ==
--- NOTE | 2024-12-24 11:20 | ED ---
Wound/Laceration HPI - General Chief Complaint: Wound/Laceration Stated Complaint: L leg laceration Time Seen by Provider: 12/24/24 11:09 Source: patient, RN notes reviewed Mode of arrival: ambulatory Limitations: no limitations - History of Present Illness Initial Comments: 69-year-old male presents emergency department chief complaint of left leg lacer ation. Patient states he went to greens picker a trash bag something sharp was sticking out of the causing laceration to his left lower leg. Patient states he is on current blood thinners. Patient states that he is unsure when his last tetanus was. Patient noted to have active bleeding from his left leg he has no other complaints. - Related Data Home Medications Medication Instructions Recorded Confirmed Dorzolamide HCl/Timolol Maleat 1 drop BOTH EYES BID 01/25/16 11/09/24 [Cosopt Eye Drops] Finasteride [Proscar] 5 mg PO DAILY 10/02/18 11/09/24 Omeprazole 20 mg PO BID-W/MEALS 05/02/21 11/09/24 Budesonide-Formot 160-4.5 Mcg 2 puff INHALATION RT-BID 08/15/24 11/09/24 [Symbicort 160-4.5 Mcg Inhaler] Albuterol Sulfate [Ventolin HFA] 2 puff INHALATION RT-QID PRN 11/09/24 11/09/24 Montelukast [Singulair] 10 mg PO HS 11/09/24 11/09/24 Multivitamins, Thera [Multivitamin 1 tab PO DAILY 11/09/24 11/09/24 (formulary)] cycloSPORINE [Restasis Multidose] 1 drop BOTH EYES BID 11/09/24 11/09/24 Previous Rx's Medication Instructions Recorded Aspirin 81 mg PO DAILY #90 tab 11/10/24 Atorvastatin [Lipitor] 80 mg PO DAILY #30 tab 11/10/24 Losartan [Cozaar] 12.5 mg PO DAILY #30 tab 11/10/24 Metoprolol Tartrate [Lopressor] 25 mg PO BID #60 tab 11/10/24 Nitroglycerin Sl Tabs [Nitrostat] 0.4 mg SUBLINGUAL Q5M PRN #14 tab 11/10/24 Prasugrel [Effient] 10 mg PO DAILY 30 Days #30 tab 11/10/24 Allergies Allergy/AdvReac Type Severity Reaction Status Date / Time No Known Allergies Allergy Verified 12/24/24 11:01 Review of Systems ROS Statement: Those systems with pertinent positive or pertinent negative responses have been documented in the HPI. ROS Other: All systems not noted in ROS Statement are negative. Past Medical History Past Medical History: Asthma, Eye Disorder, GERD/Reflux, Hearing Disorder / Deafness, Hyperlipidemia, Musculoskeletal Disorder, Osteoarthritis (OA), Prostate Disorder, Vascular Disorder Additional Past Medical History / Comment(s): Glaucoma bilat eyes, sl hearing loss, chronic back pain, hx detached retina zachery eyes, superficial thrombosis rt leg. History of Any Multi-Drug Resistant Organisms: None Reported Past Surgical History: Adenoidectomy, Heart Catheterization With Stent, Joint Replacement, Orthopedic Surgery, Tonsillectomy Additional Past Surgical History / Comment(s): Pain clinic proc to back, Zachery Cataract w/ lens implants, Rt knee x 2(first sx on rt meniscus repair, 2nd sx rt acl reconstruction),rt thumb cyst removed,Lt shoulder rotator cuff, detached retina repair zachery. and multiple eye surg. on the right, rt knee replacement Past Anesthesia/Blood Transfusion Reactions: Motion Sickness Additional Past Anesthesia/Blood Transfusion Reaction / Comment(s): no blood transfusion Past Psychological History: No Psychological Hx Reported Smoking Status: Former smoker Past Alcohol Use History: Occasional Past Drug Use History: None Reported - Past Family History Mother Family Medical History: Cancer, Congestive Heart Failure (CHF), COPD Additional Family Medical History / Comment(s): colon/bowel cancer Father Family Medical History: Congestive Heart Failure (CHF), COPD Additional Family Medical History / Comment(s): emphysema Sister(s) Family Medical History: No Reported History Additional Family Medical History / Comment(s): glaucoma General Exam Limitations: no limitations General appearance: alert, in no apparent distress Head exam: Present: atraumatic, normocephalic, normal inspection Respiratory exam: Present: normal lung sounds bilaterally. Absent: respiratory distress, wheezes, rales, rhonchi, stridor Cardiovascular Exam: Present: regular rate, normal rhythm, normal heart sounds. Absent: systolic murmur, diastolic murmur, rubs, gallop, clicks Extremities exam: Present: other (Left lower extremity 4 cm laceration with active bleeding noted, small arterial bleed noted) Neurological exam: Present: alert Course Vital Signs 12/24/24 12/24/24 10:58 12:02 Temperature 98 F 98.0 F Pulse Rate 70 61 Respiratory 18 20 Rate Blood Pressure 163/80 137/71 O2 Sat by Pulse 98 97 Oximetry Procedures - Laceration Laceration #1 Consent Obtained: verbal consent Indication: laceration Site: lower extremity Size (cm): 4 Description: linear Depth: simple, single layer Anesthetic Used: lidocaine 1%, without epi Anesthesia Technique: local infiltration Amount (mls): 5 Pre-repair: wound explored, irrigated extensively Type of Sutures: nylon Size of Sutures: 4-0 Number of Sutures: 6 Technique: simple, interrupted Patient Tolerated Procedure: well, no complications Medical Decision Making - Medical Decision Making Was pt. sent in by a medical professional or institution ([facility], [employer], urgent care, hospital, or fci...) When possible be specific @ -No Did you speak to anyone other than the patient for history (EMS, parent, family, police, friend...)? What history was obtained from this source @ -No Did you review nursing and triage notes (agree or disagree)? Why? @ -I reviewed and agree with nursing and triage notes Were old charts reviewed (outside hosp., previous admission, EMS record, old EKG, old radiological studies, urgent care reports/EKG's, fci records)? Report findings @ -No old charts were reviewed Differential Diagnosis (chest pain, altered mental status, abdominal pain women, abdominal pain men, vaginal bleeding, weakness, fever, dyspnea, syncope, headache, dizziness, GI bleed, back pain, seizure, CVA, palpatations, mental health, musculoskeletal)? @ -Laceration, abrasion EKG interpreted by me (3pts min.). @ -None X-rays interpreted by me (1pt min.). @ -None done CT interpreted by me (1pt min.). @ -None done U/S interpreted by me (1pt. min.). @ -None done What testing was considered but not performed or refused? (CT, X-rays, U/S, labs)? Why? @ -None What meds were considered but not given or refused? Why? @ -None Did you discuss the management of the patient with other professionals (professionals i.e. [facility], [employer], lab, RT, psych nurse, medical social consultant, jumpbasting canvas baster, teacher, tank officer, pillowcase turner)? Give summary @ -No Was smoking cessation discussed for >3mins.? @ -No Was critical care preformed (if so, how long)? @ -No Were there social determinants of health that impacted care today? How? (Homelessness, low income, unemployed, alcoholism, drug addiction, transportation, low edu. Level, literacy, decrease access to med. care, senior care, rehab)? @ -No Was there de-escalation of care discussed even if they declined (Discuss DNR or withdrawal of care, Hospice)? DNR status @ -No What co-morbidities impacted this encounter? (DM, HTN, Smoking, COPD, CAD, Cancer, CVA, ARF, Chemo, Hep., AIDS, mental health diagnosis, sleep apnea, morbid obesity)? @ -None Was patient admitted / discharged? Hospital course, mention meds given and route, prescriptions, significant lab abnormalities, going to OR and other pertinent info. @ -[Discharged patient had laceration repaired tetanus was updated discharged in stable condition with wound care instructions and return parameters Undiagnosed new problem with uncertain prognosis? @ -No Drug Therapy requiring intensive monitoring for toxicity (Heparin, Nitro, Insulin, Cardizem)? @ -No Were any procedures done? @ -No Diagnosis/symptom? @ -Left leg laceration Acute, or Chronic, or Acute on Chronic? @ -Acute Uncomplicated (without systemic symptoms) or Complicated (systemic symptoms)? @ -Uncomplicated Side effects of treatment? @ -No Exacerbation, Progression, or Severe Exacerbation? @ -No Poses a threat to life or bodily function? How? (Chest pain, [place], [place], pneumonia, PE, COPD, DKA, ARF, appy, cholecystitis, CVA, Diverticulitis, Homicidal, Suicidal, threat to staff... and all critical care pts) @ -No Disposition Clinical Impression: Laceration of left leg Disposition: HOME SELF-CARE Condition: Stable Instructions (If sedation given, give patient instructions): Care For Your Stitches (ED), Laceration (ED) Additional Instructions: Have sutures removed in 14-day. Please return to the Emergency Department if symptoms worsen or any other concerns. Is patient prescribed a controlled substance at d/c from ED?: No Referrals: Bob Qureshi DO [Primary Care Provider] - 1-2 days Time of Disposition: 11:51
[2024-12-24] MEDS: LIDOCAINE 1%-EPI 1:100,000 20 ML VIAL SQ STA (11:22)
[2024-12-24] MEDS: DIPH,PERTUS(ACELL)TETVAC-LF 0.5 ML VIAL IM ONE (11:23)
[2024-12-24] MEDS: BACITRACIN OINT 1 EACH PACKET TOPICAL ONE (11:50)
[2024-12-24 12:05] VITALS: BP 137/71; PULSE 61; RESP 20; TEMP 98
== END 2024-12-24 12:11 | disposition home or self-care (01) ==
LOC: EC 10:55
DX: S81.812A Laceration without foreign body, left lower leg, initial encounter (principal); Z87.891 Personal history of nicotine dependence; Z23 Encounter for immunization; W25.XXXA Contact with sharp glass, initial encounter
CPT/HCPCS: 12002; 90471; 90715; 99282

== ENCOUNTER 2025-01-01 07:50 | Emergency (ER) | payer MEDICARE ==
[2025-01-01 08:01] VITALS: RESP 18
--- NOTE | 2025-01-01 08:20 | ED ---
Recheck HPI - General Chief Complaint: Recheck/Abnormal Lab/Rx Stated Complaint: L leg infection Time Seen by Provider: 01/01/25 08:19 Source: patient, RN notes reviewed Mode of arrival: ambulatory Limitations: no limitations - History of Present Illness Initial Comments: 69-year-old male presented the ER for evaluation of wound infection. Patient was seen here on 12-24-2024 after accidentally cutting his right anterior calf with what he believes is a piece of glass in garbage. Wound was irrigated and sutures were placed. Tetanus updated at that time. Patient was not started on antibiotics. He states over the past 24 hours he has noticed surrounding redness to wound and is concerned of infection. He denies any purulent drainage, foul smell, fevers or chills. Patient also reports nausea but denies any vomiting, abdominal pain, chest pain, shortness of breath or other complaints. - Related Data Home Medications Medication Instructions Recorded Confirmed Dorzolamide HCl/Timolol Maleat 1 drop BOTH EYES BID 01/25/16 11/09/24 [Cosopt Eye Drops] Finasteride [Proscar] 5 mg PO DAILY 10/02/18 11/09/24 Omeprazole 20 mg PO BID-W/MEALS 05/02/21 11/09/24 Budesonide-Formot 160-4.5 Mcg 2 puff INHALATION RT-BID 08/15/24 11/09/24 [Symbicort 160-4.5 Mcg Inhaler] Albuterol Sulfate [Ventolin HFA] 2 puff INHALATION RT-QID PRN 11/09/24 11/09/24 Montelukast [Singulair] 10 mg PO HS 11/09/24 11/09/24 Multivitamins, Thera [Multivitamin 1 tab PO DAILY 11/09/24 11/09/24 (formulary)] cycloSPORINE [Restasis Multidose] 1 drop BOTH EYES BID 11/09/24 11/09/24 Previous Rx's Medication Instructions Recorded Aspirin 81 mg PO DAILY #90 tab 11/10/24 Atorvastatin [Lipitor] 80 mg PO DAILY #30 tab 11/10/24 Losartan [Cozaar] 12.5 mg PO DAILY #30 tab 11/10/24 Metoprolol Tartrate [Lopressor] 25 mg PO BID #60 tab 11/10/24 Nitroglycerin Sl Tabs [Nitrostat] 0.4 mg SUBLINGUAL Q5M PRN #14 tab 11/10/24 Prasugrel [Effient] 10 mg PO DAILY 30 Days #30 tab 11/10/24 Cephalexin [Keflex] 500 mg PO Q6HR 7 Days #28 cap 01/01/25 Allergies Allergy/AdvReac Type Severity Reaction Status Date / Time No Known Allergies Allergy Verified 01/01/25 13:52 Review of Systems ROS Statement: Those systems with pertinent positive or pertinent negative responses have been documented in the HPI. ROS Other: All systems not noted in ROS Statement are negative. Past Medical History Past Medical History: Asthma, Eye Disorder, GERD/Reflux, Hearing Disorder / Deafness, Hyperlipidemia, Musculoskeletal Disorder, Osteoarthritis (OA), Prostate Disorder, Vascular Disorder Additional Past Medical History / Comment(s): Glaucoma bilat eyes, sl hearing loss, chronic back pain, hx detached retina zachery eyes, superficial thrombosis rt leg. History of Any Multi-Drug Resistant Organisms: None Reported Past Surgical History: Adenoidectomy, Heart Catheterization With Stent, Joint Replacement, Orthopedic Surgery, Tonsillectomy Additional Past Surgical History / Comment(s): Pain clinic proc to back, Zachery Cataract w/ lens implants, Rt knee x 2(first sx on rt meniscus repair, 2nd sx rt acl reconstruction),rt thumb cyst removed,Lt shoulder rotator cuff, detached retina repair zachrey. and multiple eye surg. on the right, rt knee replacement Past Anesthesia/Blood Transfusion Reactions: Motion Sickness Additional Past Anesthesia/Blood Transfusion Reaction / Comment(s): no blood transfusion Past Psychological History: No Psychological Hx Reported Smoking Status: Former smoker Past Alcohol Use History: Occasional Past Drug Use History: None Reported - Past Family History Mother Family Medical History: Cancer, Congestive Heart Failure (CHF), COPD Additional Family Medical History / Comment(s): colon/bowel cancer Father Family Medical History: Congestive Heart Failure (CHF), COPD Additional Family Medical History / Comment(s): emphysema Sister(s) Family Medical History: No Reported History Additional Family Medical History / Comment(s): glaucoma General Exam Limitations: no limitations General appearance: alert, in no apparent distress Respiratory exam: Present: normal lung sounds bilaterally. Absent: respiratory distress, wheezes, rales, rhonchi, stridor Cardiovascular Exam: Present: regular rate, normal rhythm, normal heart sounds. Absent: systolic murmur, diastolic murmur, rubs, gallop, clicks Extremities exam: Present: normal inspection, full ROM, normal capillary refill (2+ right DP pulse). Absent: tenderness, pedal edema, joint swelling, calf tenderness Neurological exam: Present: alert, oriented X3, CN II-XII intact Skin exam: Present: warm, dry, intact, normal color, other (4 cm laceration noted to right anterior calf. Sutures are in place. There is surrounding eryt emili. No purulent drainage, foul smell or edema noted.). Absent: rash Course Vital Signs 01/01/25 01/01/25 07:56 08:28 Temperature 97.6 F 98 F Pulse Rate 68 69 Respiratory 18 18 Rate Blood Pressure 154/80 145/82 O2 Sat by Pulse 99 99 Oximetry Medical Decision Making - Medical Decision Making Was pt. sent in by a medical professional or institution (, PA, TELEPHONE ANSWERING SERVICE OPERATOR, urgent care, hospital, or prison...) When possible be specific @ -No Did you speak to anyone other than the patient for history (EMS, parent, family, police, friend...)? What history was obtained from this source @ -No Did you review nursing and triage notes (agree or disagree)? Why? @ -I reviewed and agree with nursing and triage notes Were old charts reviewed (outside hosp., previous admission, EMS record, old EKG, old radiological studies, urgent care reports/EKG's, prison records)? Report findings @ -Yes, I reviewed chart from 12-24-2024 patient seen here for wound repair and tetanus updated and wound sutures placed. Differential Diagnosis (chest pain, altered mental status, abdominal pain women, abdominal pain men, vaginal bleeding, weakness, fever, dyspnea, syncope, headache, dizziness, GI bleed, back pain, seizure, CVA, palpatations, mental health, musculoskeletal)? @ -Cellulitis, wound infection, abscess, wound dehiscence... This list is not meant to be all-inclusive EKG interpreted by me (3pts min.). @ -None done X-rays interpreted by me (1pt min.). @ -None done CT interpreted by me (1pt min.). @ -None done U/S interpreted by me (1pt. min.). @ -None done What testing was considered but not performed or refused? (CT, X-rays, U/S, labs)? Why? @ -None What meds were considered but not given or refused? Why? @ -None Did you discuss the management of the patient with other professionals (professionals i.e. , PA, TELEPHONE ANSWERING SERVICE OPERATOR, lab, RT, psych nurse, social worker health services, map mounter, teacher, customs and border protection officer, caser in)? Give summary @ -No Was smoking cessation discussed for >3mins.? @ -No Was critical care preformed (if so, how long)? @ -No Were there social determinants of health that impacted care today? How? (Homelessness, low income, unemployed, alcoholism, drug addiction, transportation, low edu. Level, literacy, decrease access to med. care, [facility] [facility], rehab)? @ -No Was there de-escalation of care discussed even if they declined (Discuss DNR or withdrawal of care, Hospice)? DNR status @ -No What co-morbidities impacted this encounter? (DM, HTN, Smoking, COPD, CAD, Cancer, CVA, ARF, Chemo, Hep., AIDS, mental health diagnosis, sleep apnea, morbid obesity)? @ -None Was patient admitted / discharged? Hospital course, mention meds given and route, prescriptions, significant lab abnormalities, going to OR and other pertinent info. @ -Discharge. 69-year-old male presented the ER for evaluation and concern of wound infection. Exam remarkable for a 4 cm laceration to right anterior calf with sutures in place. There is surrounding erythema noted concerning of infection for which patient will be started on Keflex. Patient is neurovascularly intact. Tetanus updated on 12-24-2024. Patient discharged in stable condition with follow-up to PCP. Return parameters discussed. Patient verbally expressed understanding agreement care plan. Case discussed with ED attending, Dr. Montilla. Undiagnosed new problem with uncertain prognosis? @ -No Drug Therapy requiring intensive monitoring for toxicity (Heparin, Nitro, Insulin, Cardizem)? @ -No Were any procedures done? @ -No Diagnosis/symptom? @ -Wound infection Acute, or Chronic, or Acute on Chronic? @ -Acute Uncomplicated (without systemic symptoms) or Complicated (systemic symptoms)? @ -Uncomplicated Side effects of treatment? @ -No Exacerbation, Progression, or Severe Exacerbation? @ -No Poses a threat to life or bodily function? How? (Chest pain, USA, NM, pneumonia, PE, COPD, DKA, ARF, appy, cholecystitis, CVA, Diverticulitis, Homicidal, Suicidal, threat to staff... and all critical care pts) @ -Low Disposition Clinical Impression: Infected laceration Disposition: HOME SELF-CARE Condition: Stable Instructions (If sedation given, give patient instructions): Laceration (DC) Additional Instructions: Take antibiotics as prescribed. Return to the ER including but not limited to for any worsening redness or redness traveling up your leg, drainage or increase in pain and swelling. Prescriptions: Cephalexin [Keflex] 500 mg PO Q6HR 7 Days #28 cap Is patient prescribed a controlled substance at d/c from ED?: No Referrals: Sancho Mason MD [Primary Care Provider] - 1-2 days Time of Disposition: 08:20
[2025-01-01 08:31] VITALS: BP 145/82; PULSE 69; TEMP 98
== END 2025-01-01 08:34 | disposition home or self-care (01) ==
LOC: EC 07:50
DX: S81.811A Laceration without foreign body, right lower leg, initial encounter (principal); Z87.891 Personal history of nicotine dependence; W25.XXXA Contact with sharp glass, initial encounter
CPT/HCPCS: 99283

== ENCOUNTER 2025-01-01 13:49 | Emergency (ER) | payer MEDICARE ==
[2025-01-01 13:52] VITALS: TEMP 97.4
--- NOTE | 2025-01-01 14:11 | ED ---
General Adult HPI - General Chief complaint: Shortness of Breath Stated complaint: LISSET Time Seen by Provider: 01/01/25 14:05 Source: patient, RN notes reviewed Mode of arrival: wheelchair Limitations: no limitations - History of Present Illness Initial comments: This is a 69-year-old male with history including hyperlipidemia, AMI, asthma presenting for palpitations and shortness of breath x 1 day. 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 Joyner when he began experiencing SOB, palpitations, lightheadedness, nausea, presyncope and left arm paresthesia. Patient endorses daily occurrences of intermittent episodes lasting 1 to 2 minutes while at rest for the past 1-2 months. Patient was also seen earlier today for an infection on his left leg. Endorses receiving a stress test 2-3 weeks ago with no concerning findings at that time. States lightheadedness has occurred daily for the past week. Endorses an MO in October 2024, receiving 3 stents. Patient was able to reschedule appointment with Dr. Joyner on 01/06/2025. Denies fever, chills, chest pain, diaphoresis, abdominal pain, N/V/D. Onset/Timin -: hour(s) Associated Symptoms: nausea/vomiting, shortness of breath Treatments Prior to Arrival: none - Related Data Home Medications Medication Instructions Recorded Confirmed Dorzolamide HCl/Timolol Maleat 1 drop BOTH EYES BID 01/25/16 11/09/24 [Cosopt Eye Drops] Finasteride [Proscar] 5 mg PO DAILY 10/02/18 11/09/24 Omeprazole 20 mg PO BID-W/MEALS 05/02/21 11/09/24 Budesonide-Formot 160-4.5 Mcg 2 puff INHALATION RT-BID 08/15/24 11/09/24 [Symbicort 160-4.5 Mcg Inhaler] Albuterol Sulfate [Ventolin HFA] 2 puff INHALATION RT-QID PRN 11/09/24 11/09/24 Montelukast [Singulair] 10 mg PO HS 11/09/24 11/09/24 Multivitamins, Thera [Multivitamin 1 tab PO DAILY 11/09/24 11/09/24 (formulary)] cycloSPORINE [Restasis Multidose] 1 drop BOTH EYES BID 11/09/24 11/09/24 Previous Rx's Medication Instructions Recorded Aspirin 81 mg PO DAILY #90 tab 11/10/24 Atorvastatin [Lipitor] 80 mg PO DAILY #30 tab 11/10/24 Losartan [Cozaar] 12.5 mg PO DAILY #30 tab 11/10/24 Metoprolol Tartrate [Lopressor] 25 mg PO BID #60 tab 11/10/24 Nitroglycerin Sl Tabs [Nitrostat] 0.4 mg SUBLINGUAL Q5M PRN #14 tab 11/10/24 Prasugrel [Effient] 10 mg PO DAILY 30 Days #30 tab 11/10/24 Cephalexin [Keflex] 500 mg PO Q6HR 7 Days #28 cap 01/01/25 Allergies Allergy/AdvReac Type Severity Reaction Status Date / Time No Known Allergies Allergy Verified 01/01/25 13:52 Review of Systems ROS Statement: Those systems with pertinent positive or pertinent negative responses have been documented in the HPI. ROS Other: All systems not noted in ROS Statement are negative. Past Medical History Past Medical History: Asthma, Eye Disorder, GERD/Reflux, Hearing Disorder / Deafness, Hyperlipidemia, Musculoskeletal Disorder, Osteoarthritis (OA), Prostate Disorder, Vascular Disorder Additional Past Medical History / Comment(s): Glaucoma bilat eyes, sl hearing loss, chronic back pain, hx detached retina jonna eyes, superficial thrombosis rt leg. History of Any Multi-Drug Resistant Organisms: None Reported Past Surgical History: Adenoidectomy, Heart Catheterization With Stent, Joint Replacement, Orthopedic Surgery, Tonsillectomy Additional Past Surgical History / Comment(s): Pain clinic proc to back, Jonna Cataract w/ lens implants, Rt knee x 2(first sx on rt meniscus repair, 2nd sx rt acl reconstruction),rt thumb cyst removed,Lt shoulder rotator cuff, detached retina repair jonna. and multiple eye surg. on the right, rt knee replacement Past Anesthesia/Blood Transfusion Reactions: Motion Sickness Additional Past Anesthesia/Blood Transfusion Reaction / Comment(s): no blood transfusion Past Psychological History: No Psychological Hx Reported Smoking Status: Former smoker Past Alcohol Use History: Occasional Past Drug Use History: None Reported - Past Family History Mother Family Medical History: Cancer, Congestive Heart Failure (CHF), COPD Additional Family Medical History / Comment(s): colon/bowel cancer Father Family Medical History: Congestive Heart Failure (CHF), COPD Additional Family Medical History / Comment(s): emphysema Sister(s) Family Medical History: No Reported History Additional Family Medical History / Comment(s): glaucoma General Exam Limitations: no limitations General appearance: alert, anxious Head exam: Present: atraumatic, normocephalic, normal inspection Eye exam: Present: normal appearance, PERRL, EOMI. Absent: scleral icterus, conjunctival injection, periorbital swelling ENT exam: Present: normal exam, mucous membranes moist Neck exam: Present: normal inspection. Absent: tenderness, meningismus, lymphadenopathy Respiratory exam: Present: normal lung sounds bilaterally. Absent: respiratory distress, wheezes, rales, rhonchi, stridor, accessory muscle use, decreased breath sounds, prolonged expiratory Cardiovascular Exam: Present: regular rate, normal rhythm, normal heart sounds. Absent: systolic murmur, diastolic murmur, rubs, gallop, clicks GI/Abdominal exam: Present: soft, normal bowel sounds. Absent: distended, tenderness, guarding, rebound, rigid Extremities exam: Present: normal inspection, full ROM, normal capillary refill. Absent: tenderness, pedal edema, joint swelling, calf tenderness Back exam: Present: normal inspection Neurological exam: Present: alert, oriented X3, CN II-XII intact Psychiatric exam: Present: normal affect, normal mood Skin exam: Present: warm, dry, intact, normal color. Absent: rash Course Vital Signs 01/01/25 01/01/25 13:49 18:11 Temperature 97.4 F L Pulse Rate 80 57 L Respiratory 17 16 Rate Blood Pressure 179/66 154/90 O2 Sat by Pulse 99 98 Oximetry Medical Decision Making - Medical Decision Making Was pt. sent in by a medical professional or institution (, PA, BAKER PIE, urgent care, hospital, or [facility]...) When possible be specific @ -No Did you speak to anyone other than the patient for history (EMS, parent, family, police, friend...)? What history was obtained from this source @ -No Did you review nursing and triage notes (agree or disagree)? Why? @ -I reviewed and agree with nursing and triage notes Were old charts reviewed (outside hosp., previous admission, EMS record, old EKG, old radiological studies, urgent care reports/EKG's, [facility] records)? Report findings @ -No old charts were reviewed Differential Diagnosis (chest pain, altered mental status, abdominal pain women, abdominal pain men, vaginal bleeding, weakness, fever, dyspnea, syncope, headache, dizziness, GI bleed, back pain, seizure, CVA, palpatations, mental health, musculoskeletal)? @ -Differential Palpitations Ventricular arrhythmias, atrial arrhythmias, myocardial infarction, anemia, thyrotoxicosis, electrolyte imbalance, hypokalemia, pulmonary embolism, pu lmonary disease, drugs, alcohol, anxiety, stress.... This is not meant to be an all-inclusive list. EKG interpreted by me (3pts min.). @ -Sinus arrhythmia without T wave inversion. Minimal ST depression noted in V4, V5. Ventricular rate 72 bpm, FLORY 161 ms, QRS 106 ms, QTc 408 ms. X-rays interpreted by me (1pt min.). @ -CXR shows borderline heart size and COPD changes with no acute changes noted. CT interpreted by me (1pt min.). @ -None done U/S interpreted by me (1pt. min.). @ -None done What testing was considered but not performed or refused? (CT, X-rays, U/S, labs)? Why? @ -None What meds were considered but not given or refused? Why? @ -None Did you discuss the management of the patient with other professionals (professionals i.e. , PA, BAKER PIE, lab, RT, psych nurse, certified social workers in health care, child support investigator, teacher, workplace rehabilitation officer, lining caser)? Give summary @ -No Was smoking cessation discussed for >3mins.? @ -No Was critical care preformed (if so, how long)? @ -No Were there social determinants of health that impacted care today? How? (Homelessness, low income, unemployed, alcoholism, drug addiction, transportation, low edu. Level, literacy, decrease access to med. care, custodial, rehab)? @ -No Was there de-escalation of care discussed even if they declined (Discuss DNR or withdrawal of care, Hospice)? DNR status @ -No What co-morbidities impacted this encounter? (DM, HTN, Smoking, COPD, CAD, Cancer, CVA, ARF, Chemo, Hep., AIDS, mental health diagnosis, sleep apnea, m orbid obesity)? @ -None Was patient admitted / discharged? Hospital course, mention meds given and r oute, prescriptions, significant lab abnormalities, going to OR and other pertinent info. @ -Patient initially provided p.o. chewable ASA 324. Lab work notable for creatinine 1.30 which is WNL for patient. CXR shows borderline heart size and COPD changes with no acute changes noted. Patient declined obs admission and repeat troponin was performed, being WNL, prior to discharge. Advised close follow-up with Dr. Joyner for further cardiological workup. Advise return to ER if experiencing worsening chest pain, dyspnea, lightheadedness, diaphoresis, ALOC. Discussed patient with Dr. Leblanc. Undiagnosed new problem with uncertain prognosis? @ -No Drug Therapy requiring intensive monitoring for toxicity (Heparin, Nitro, Insulin, Cardizem)? @ -No Were any procedures done? @ -No Diagnosis/symptom? @ -Heart palpitations Acute, or Chronic, or Acute on Chronic? @ -Acute Uncomplicated (without systemic symptoms) or Complicated (systemic symptoms)? @ -Complicated Side effects of treatment? @ -No Exacerbation, Progression, or Severe Exacerbation? @ -No Poses a threat to life or bodily function? How? (Chest pain, USA, MO, pneumonia, PE, COPD, DKA, ARF, appy, cholecystitis, CVA, Diverticulitis, Homicidal, Suicidal, threat to staff... and all critical care pts) @ -No - Lab Data Result diagrams: 01/01/25 14:35 01/01/25 14:35 Lab Results 01/01/25 01/01/25 01/01/25 Range/Units 14:35 14:35 14:35 WBC 10.09 H (4.50-10.00) 10*3/uL RBC 4.18 L (4.40-5.60) 10*6/uL Hgb 12.9 L (13.0-17.0) g/dL Hct 39.9 (39.6-50.0) % MCV 95.5 (80.0-97.0) fL MCH 30.9 (27.0-32.0) pg MCHC 32.3 (32.0-37.0) g/dL Plt Count 298 (140-440) 10*3/uL MPV 9.9 (9.5-12.2) fL Immature Gran % (Auto) 0.2 % Neutrophils % 71.1 % Lymphocytes % 16.6 % Monocytes % 10.3 % Eosinophils % 1.4 % Basophils % 0.4 % Immature Gran # 0.02 (0.00-0.04) 10*3/uL Neutrophils # 7.18 (1.80-7.70) 10*3/uL Lymphocytes # 1.67 (0.90-5.00) 10*3/uL Monocytes # 1.04 H (0.20-1.00) 10*3/uL Eosinophils # 0.14 (0.04-0.35) 10*3/uL Basophils # 0.04 (0.00-0.10) 10*3/uL PT 11.6 (10.0-12.5) sec INR 1.1 (<1.2) APTT 23.9 (22.0-30.0) sec Sodium 139 (137-145) mmol/L Potassium 4.0 (3.5-5.1) mmol/L Chloride 104 (98-107) mmol/L Carbon Dioxide 28 (22-30) mmol/L Anion Gap 7 mmol/L BUN 20 (9-20) mg/dL Creatinine 1.30 H (0.66-1.25) mg/dL Est GFR (CKD-EPI)AfAm 64 (>60 ml/min/1.73 sqM) Est GFR (CKD-EPI)NonAf 55 (>60 ml/min/1.73 sqM) Glucose 94 (74-99) mg/dL Calcium 9.6 (8.4-10.2) mg/dL Magnesium 2.0 (1.6-2.3) mg/dL Total Bilirubin 0.6 (0.2-1.3) mg/dL AST 36 (17-59) U/L ALT 35 (4-49) U/L Alkaline Phosphatase 78 (38-126) U/L Troponin I (0.000-0.034) ng/mL Total Protein 7.4 (6.3-8.2) g/dL Albumin 4.0 (3.5-5.0) g/dL 01/01/25 01/01/25 Range/Units 14:35 18:10 WBC (4.50-10.00) 10*3/uL RBC (4.40-5.60) 10*6/uL Hgb (13.0-17.0) g/dL Hct (39.6-50.0) % MCV (80.0-97.0) fL MCH (27.0-32.0) pg MCHC (32.0-37.0) g/dL Plt Count (140-440) 10*3/uL MPV (9.5-12.2) fL Immature Gran % (Auto) % Neutrophils % % Lymphocytes % % Monocytes % % Eosinophils % % Basophils % % Immature Gran # (0.00-0.04) 10*3/uL Neutrophils # (1.80-7.70) 10*3/uL Lymphocytes # (0.90-5.00) 10*3/uL Monocytes # (0.20-1.00) 10*3/uL Eosinophils # (0.04-0.35) 10*3/uL Basophils # (0.00-0.10) 10*3/uL PT (10.0-12.5) sec INR (<1.2) APTT (22.0-30.0) sec Sodium (137-145) mmol/L Potassium (3.5-5.1) mmol/L Chloride (98-107) mmol/L Carbon Dioxide (22-30) mmol/L Anion Gap mmol/L BUN (9-20) mg/dL Creatinine (0.66-1.25) mg/dL Est GFR (CKD-EPI)AfAm (>60 ml/min/1.73 sqM) Est GFR (CKD-EPI)NonAf (>60 ml/min/1.73 sqM) Glucose (74-99) mg/dL Calcium (8.4-10.2) mg/dL Magnesium (1.6-2.3) mg/dL Total Bilirubin (0.2-1.3) mg/dL AST (17-59) U/L ALT (4-49) U/L Alkaline Phosphatase (38-126) U/L Troponin I 0.018 0.020 (0.000-0.034) ng/mL Total Protein (6.3-8.2) g/dL Albumin (3.5-5.0) g/dL Disposition Clinical Impression: Heart palpitations Disposition: HOME SELF-CARE Condition: Fair Instructions (If sedation given, give patient instructions): Heart Palpitations (ED), Near Syncope (ED) Additional Instructions: Follow-up with scheduled cardiology appointment on 01/06/2025. Return to ER if experiencing similar or worsening symptoms that brought you today. Is patient prescribed a controlled substance at d/c from ED?: No Referrals: Sancho Mason MD [Primary Care Provider] - 1-2 days Shahid Joyner MD [STAFF PHYSICIAN] - 1-2 days Time of Disposition: 18:43
[2025-01-01] MEDS: ASPIRIN 81 MG PO STA (14:34)
[2025-01-01 14:54] LABS: Basophils # (A) 0.04 10*3/uL (0.00-0.10); Basophils % (A) 0.4 %; Eosinophils # (A) 0.14 10*3/uL (0.04-0.35); Eosinophils % (A) 1.4 %; HCT 39.9 % (39.6-50.0); HGB 12.9 g/dL (13.0-17.0); Lymphocytes # (A) 1.67 10*3/uL (0.90-5.00); Lymphocytes % (A) 16.6 %; MCH 30.9 pg (27.0-32.0); MCHC 32.3 g/dL (32.0-37.0); MCV 95.5 fL (80.0-97.0); Mean Platelet Volume 9.9 fL (9.5-12.2); Monocytes # (A) 1.04 10*3/uL (0.20-1.00); Monocytes % (A) 10.3 %; Neutrophils # (A) 7.18 10*3/uL (1.80-7.70); Neutrophils % (A) 71.1 %; Platelet Count 298 10*3/uL (140-440); RBC 4.18 10*6/uL (4.40-5.60); RDW 13.9 % (11.5-14.5); WBC 10.09 10*3/uL (4.50-10.00)
[2025-01-01 15:05] LABS: INR 1.1 (<1.2); Partial Thromboplastin Time 23.9 sec (22.0-30.0); Prothrombin Time 11.6 sec (10.0-12.5)
--- NOTE | 2025-01-01 15:05 | XR ---
EXAMINATION TYPE: XR chest 2V DATE OF EXAM: 01/01/2025 2:48 PM COMPARISON: 11/08/2024 CLINICAL INDICATION: Male, 69 years old with history of difficulty breathing, shortness of breath TECHNIQUE: PA and lateral views FINDINGS: Heart upper limits of normal in size. Aorta within normal limits. Mild interstitial prominence. No co nsolidation or pleural effusion. Some strandy density is unchanged partly projectional or scarring. D LUCY mid and lower thoracic spine. IMPRESSION: Borderline heart size and COPD. No acute change identified. [facility], , 01/01/2025 3:03 PM
[2025-01-01 15:12] LABS: ALT 35 U/L (4-49); AST 36 U/L (17-59); African American GFR (CKD) 64 (>60 ml/min/1.73 sqM); Alkaline Phosphatase 78 U/L (38-126); Anion Gap 7 mmol/L; Blood Urea Nitrogen 20 mg/dL (9-20); Calcium 9.6 mg/dL (8.4-10.2); Carbon Dioxide 28 mmol/L (22-30); Chloride 104 mmol/L (98-107); Glucose 94 mg/dL (74-99); Non-African American GFR(CKD) 55 (>60 ml/min/1.73 sqM); Sodium 139 mmol/L (137-145); Total Bilirubin 0.6 mg/dL (0.2-1.3); Total Protein 7.4 g/dL (6.3-8.2)
[2025-01-01 18:12] VITALS: BP 154/90; PULSE 57; RESP 16
== END 2025-01-01 19:41 | disposition home or self-care (01) ==
LOC: EC 13:49
DX: R00.2 Palpitations (principal); R55 Syncope and collapse; Z87.891 Personal history of nicotine dependence
CPT/HCPCS: 36415; 71046; 80053; 83735; 84484; 85025; 85610; 85730; 93005; 99285